=== PATIENT | male | born 1965 | race African-American/Black ===

== ENCOUNTER 2018-10-07 23:09 | Inpatient (IN) | payer SELFPAY ==
[~2018-10-07] VITALS: Ht 180.3 cm; Wt 57.7 kg
[2018-10-08] MEDS ORDERED: SODIUM CHLORIDE 0.9% 1,000 ML IVB ONE (01:14)
[2018-10-08] MEDS ORDERED: ONDANSETRON HCL 4 MG/2 ML VIAL IV ONE (01:30)
[2018-10-08] MEDS ORDERED: MORPHINE SULFATE 4 MG/ML SYR/VIAL IV ONE (01:30)
[2018-10-08 01:57] LABS: Basophils # (auto) 0 uL; Basophils % (auto) 0.9 % (0.0-2.0); Eosinophils # (auto) 0 uL; Eosinophils % (auto) 0.8 % (0.0-7.0); Hemoglobin 15.4 g/dL (13.5-17.5); Lymphocytes # (auto) 1.3 uL; Mean Corpuscular Volume 101.9 fL (80.0-100.0); Monocytes # (auto) 0.3 uL; Neutrophils # (auto) 2.8 uL
[2018-10-08 01:59] LABS: Hematocrit 44.9 % (41.0-53.0); Lymphocytes % (auto) 29.5 % (10.0-50.0); Mean Corpuscular Hemoglobin 34.9 pg (28.0-32.0); Mean Corpuscular Hgb Conc. 34.3 g/dL (32.0-36.0); Monocytes % (auto) 6.9 % (0.0-12.0); Neutrophils % (auto) 61.9 % (37.0-80.0); Nucleated Red Blood Cells % 0.2 %; Platelet Count (auto) 169 10^3/uL (140-450); Red Blood Cells 4.41 10^6/uL (4.5-5.90); Red Cell Distribution Width 14.2 % (11.8-14.3); White Blood Cell 4.4 10^3/uL (4.4-10.8)
[2018-10-08 02:12] LABS: INR 0.98 (0.9-1.15); Partial Thromboplastin Time 29.1 sec (23.64-32.05)
[2018-10-08 02:16] LABS: Alanine Aminotransferase 26 U/L (16-61); Albumin 3.8 g/dL (3.4-5.0); Anion Gap 11 (5-15); Aspartate Aminotransferase 27 U/L (15-37); BUN/Creatinine Ratio 14.5; Blood Urea Nitrogen 11 mg/dL (7-18); Calcium 8.8 mg/dL (8.5-10.1); Carbon Dioxide 22 mmol/L (21-32); Chloride 111 mmol/L (98-107); GFR African American 137 mL/min; GFR Non-African American 113 mL/min; Glucose 70 mg/dL (74-106); Magnesium 2.3 mg/dL (1.6-2.6); Potassium 3.9 mmol/L (3.5-5.1); Sodium 144 mmol/L (136-145)
[2018-10-08 02:21] LABS: Alkaline Phosphatase 78 U/L (45-117); Bilirubin, Total 0.8 mg/dL (0.2-1.0); Total Protein 7.7 g/dL (6.4-8.2)
[2018-10-08 08:30] LABS: Urine Bacteria NONE SEEN /hpf (None Seen); Urine Blood Negative /uL (Negative); Urine Mucus FEW (None Seen); Urine Specific Gravity 1.025 (1.001-1.035); Urine WBC 1 /hpf (0 - 3)
[2018-10-08 08:38] LABS: Amphetamine Screen, Urine NEGATIVE (NEGATIVE); Barbiturate Scree,Urine NEGATIVE (NEGATIVE); Benzodiazephine Screen, Urine NEGATIVE (NEGATIVE); Cannabinoid Screen, Urine NEGATIVE (NEGATIVE); Cocaine Screen, Urine NEGATIVE (NEGATIVE); Opiate Scree,Urine POSITIVE (NEGATIVE); Phencyclidine Screen, Urine NEGATIVE (NEGATIVE)
[2018-10-08] MEDS ORDERED: SODIUM CHLORIDE 0.9% 1,000 ML IV ONE (08:39)
[2018-10-08] MEDS ORDERED: ASPirin 81 mg TAB PO ONE (08:45)
[2018-10-08] MEDS ORDERED: HYDROcodone-ACET 5/325MG TAB PO PRN (12:15)
[2018-10-08] MEDS ORDERED: hydrALAZINE HCL 20 MG/ML VL IV PRN (12:15)
[2018-10-08] MEDS ORDERED: NITROGLYCERIN 0.4 MG SL TAB SL PRN (12:15)
[2018-10-08] MEDS ORDERED: MORPHINE SULF INJ 2 MG/ML SYRINGE 1ML IV PRN (12:15)
[2018-10-08] MEDS ORDERED: ACETAMINOPHEN 500 MG TAB PO PRN (12:15)
[2018-10-08] MEDS ORDERED: ONDANSETRON HCL 4 MG/2 ML VIAL IV PRN (12:15)
[2018-10-08 13:00] VITALS: BP 122/65
[2018-10-08 13:08] VITALS: BP 122/65
--- NOTE | 2018-10-08 13:12 | NUR ---
Telemetry admit from [facility] admitted to Telemetry unit after SBAR received. Patient oriented to CHRISTOFER CASTAÑEDA RN primary RN, unit, room, bed, and unit policies regarding patient care and visiting hours. Patient now on continuous telemetry monitoring, tele box #5 and telemetry reading on arrival to unit is SR95. Patient weighed by bedscale and encouraged to call if they need something. All questions and concerns addressed, patient verbalized understanding.
[2018-10-08] MEDS ORDERED: PNEUMOCOCCAL VACC POLYS 25 MCG/0.5 ML VIAL IM ONE (14:15)
[2018-10-08 17:00] VITALS: BP 123/64
--- NOTE | 2018-10-08 17:15 | NUR ---
Dr Arreola At Bedside Dr Arreola at patient bedside.
--- NOTE | 2018-10-08 18:50 | NUR ---
Closing Note Patient sitting up on side of bed, shows no signs of distress at this time. Bed in lowest locked position, side rails up x2 and call light within reach.
--- NOTE | 2018-10-08 19:00 | NUR ---
OPENING NOTE Received report from day shift RN. Patient is A&O X's 4 with no s/s of distress noted. He reports no pain at this time. Educated patient on POC and to use call light when in need of assistance. Patient verbalized understanding. Provided patient with non-skid socks. Bed is in lowest/locked position with side rails up X's 2 and call light is within reach of patient. Will continue care.
[2018-10-08 22:00] VITALS: BP 132/64
[2018-10-08] MEDS: DOCUSATE SOD 100 MG CAP PO SCH (22:04)
[2018-10-08] MEDS: METOPROLOL TARTRATE 25 MG TAB PO SCH (22:05)
[2018-10-08] MEDS: ATORVASTATIN 20 MG TAB PO SCH (22:05)
[2018-10-09 05:40] VITALS: BP 119/63
[2018-10-09 05:51] LABS: Eosinophils # (auto) 0 uL; Lymphocytes # (auto) 1.1 uL; Mean Corpuscular Hgb Conc. 34.1 g/dL (32.0-36.0); Neutrophils # (auto) 2.9 uL; Nucleated Red Blood Cells % 0.1 %
[2018-10-09 05:58] LABS: Basophils # (auto) 0.1 uL; Basophils % (auto) 1.4 % (0.0-2.0); Eosinophils % (auto) 1.1 % (0.0-7.0); Hematocrit 43.4 % (41.0-53.0); Hemoglobin 14.8 g/dL (13.5-17.5); Lymphocytes % (auto) 24.3 % (10.0-50.0); Mean Corpuscular Volume 102.6 fL (80.0-100.0); Monocytes # (auto) 0.3 uL; Monocytes % (auto) 7.5 % (0.0-12.0); Neutrophils % (auto) 65.7 % (37.0-80.0); Platelet Count (auto) 153 10^3/uL (140-450); Red Blood Cells 4.23 10^6/uL (4.5-5.90); Red Cell Distribution Width 13.8 % (11.8-14.3); White Blood Cell 4.5 10^3/uL (4.4-10.8)
[2018-10-09 06:15] LABS: BUN/Creatinine Ratio 17.4; Calcium 8.4 mg/dL (8.5-10.1); Potassium 4.1 mmol/L (3.5-5.1)
--- NOTE | 2018-10-09 07:15 | NUR ---
Open Shift Note Received report on patient, asleep in bed but easily awoken. Patient shows no signs of distress at this time and states no longer having chest pain. Discussed POC with patient. Bed in lowest locked position, side rails up x2 and call light within reach. Will continue to monitor.
[2018-10-09 09:10] VITALS: BP 113/64
[2018-10-09] MEDS: ASPirin-EC 81 mg tab PO SCH (09:55)
[2018-10-09] MEDS: FAMOTIDINE 20 MG TAB PO SCH (09:56)
[2018-10-09] MEDS: DOCUSATE SOD 100 MG CAP PO SCH ×2 (09:56→21:59)
[2018-10-09] MEDS: METOPROLOL TARTRATE 25 MG TAB PO SCH ×2 (09:56→21:59)
[2018-10-09] MEDS: LISINOPRIL 10 MG TAB PO SCH (10:00)
[2018-10-09 13:00] VITALS: BP 109/64
[2018-10-09] MEDS: MORPHINE SULF INJ 2 MG/ML SYRINGE 1ML IV PRN (14:06)
[2018-10-09 17:13] VITALS: BP 106/64
--- NOTE | 2018-10-09 18:53 | NUR ---
Closing Note Patient sitting up in bed, shows no signs of distress at this time. Bed in lowest locked position, side rails up x2 and call light within reach.
--- NOTE | 2018-10-09 19:00 | NUR ---
OPENING NOTE Received report from day shift RN. Patient laying in bed with eyes closed, resting. Patient shows no s/s of distress or discomfort. Bed is in lowest/locked position with side rails up X's 2 and call light is within reach of patient. Will educate patient on POC and continue care.
[2018-10-09] MEDS: ATORVASTATIN 20 MG TAB PO SCH (21:58)
[2018-10-09 22:05] VITALS: BP 114/61
[2018-10-10 06:10] VITALS: BP 117/64
--- NOTE | 2018-10-10 07:15 | NUR ---
Opening Shift Note Assumed care of patient, awake and alert. No S/S of distress/SOB or pain. Instructed on POC and to call for assist PRN, will continue to monitor for changes Q1hr and PRN.
[2018-10-10 07:53] VITALS: BP 104/67
[2018-10-10] MEDS: ASPirin-EC 81 mg tab PO SCH (09:24)
[2018-10-10] MEDS: FAMOTIDINE 20 MG TAB PO SCH (09:24)
[2018-10-10] MEDS: DOCUSATE SOD 100 MG CAP PO SCH ×2 (09:25→21:48)
[2018-10-10] MEDS: METOPROLOL TARTRATE 25 MG TAB PO SCH ×2 (09:25→21:48)
[2018-10-10] MEDS: LISINOPRIL 10 MG TAB PO SCH ×2 (09:26→17:53)
[2018-10-10 12:13] VITALS: BP 106/61
--- NOTE | 2018-10-10 14:47 | NUR ---
NUTRITION CONSULT/ASSESSMENT NOTES Please refer to link notes of nutrition screen form filed under the intervention section of the plan of care for further details. Est. Needs: 1850 kcal to 2150 kcal (30-35 kcal/kgBW), 61 gms to 74 gms pro (1.0-1.2 gms/kgBW). Will continue to monitor pertinent labs and reassess nutrient need prn Thank you for this consult. Addendum: 10/10/18 at [address] Amended: Links added.
[2018-10-10 17:13] VITALS: BP_SYST 104; BP_SYST 128; BP_DIAS 53; BP_DIAS 83
[2018-10-10] MEDS ORDERED: FUROSEMIDE 20 MG/2 ML VIAL IV ONE (17:15)
--- NOTE | 2018-10-10 18:52 | NUR ---
Patient C/O chest pain 4/10 sharp, non radiating pain. 12 lead EKG taken and read by MD Doctor Joyce. Per MD administer pain medications as ordered for chest pain no additional orders received.
[2018-10-10] MEDS ORDERED: MORPHINE SULF INJ 2 MG/ML SYRINGE 1ML ONE (18:57)
--- NOTE | 2018-10-10 19:28 | NUR ---
Change of shift given to film processing shift supervisor RN. No distress noted.
--- NOTE | 2018-10-10 19:45 | NUR ---
Opening Note Assumed pt care from day shift nurse. Pt is a/ox4 with no s/s of distress or SOB. Pt states that his CP has subsided. Instructed pt to call if he has any additional pain. Pt is currently laying in bed with no complaints. Discussed POC with pt; pt verbalized understanding. Safety measures maintained with side rails up, bed in lowest position and call light within reach. Will continue to monitor for changes q1hr and prn.
[2018-10-10] MEDS: ATORVASTATIN 20 MG TAB PO SCH (21:48)
[2018-10-10 21:49] VITALS: BP 100/51
[2018-10-11] MEDS ORDERED: FUROSEMIDE 20 MG/2 ML VIAL IV SCH (06:00)
[2018-10-11 09:00] VITALS: BP 89/54
--- NOTE | 2018-10-11 09:06 | NUR ---
Paged Doctor Santana awaiting call back.
[2018-10-11 09:08] VITALS: BP 84/43
--- NOTE | 2018-10-11 09:08 | NUR ---
Spoke with Doctor Elba regarding decrease blood pressure 84/43 and patient is asystematic. Doctor Elba stated to hold blood pressure medication and encourage PO fluid intake at this time. No additional orders given at this time will continue to monitor.
[2018-10-11] MEDS: ASPirin-EC 81 mg tab PO SCH (09:36)
[2018-10-11] MEDS: DOCUSATE SOD 100 MG CAP PO SCH ×2 (09:37→22:14)
[2018-10-11] MEDS: FAMOTIDINE 20 MG TAB PO SCH (09:37)
[2018-10-11] MEDS: METOPROLOL TARTRATE 25 MG TAB PO SCH ×2 (09:37→22:15)
[2018-10-11] MEDS: LISINOPRIL 10 MG TAB PO SCH (09:38)
[2018-10-11] MEDS ORDERED: SODIUM CHLORIDE 0.9% 250 ML IV ONE ×2 (12:30→14:30)
[2018-10-11 13:00] VITALS: BP 98/55
--- NOTE | 2018-10-11 13:06 | NUR ---
Received referral for a financial screening for Zia Yanes in room 247 B. Pt is from [place] and was visiting and became ill. Pt stated he is working but just started a new job. Pt states he has not been there long enough tot received benefits. Pt will be returning back to [place] on discharge from the hospital. Pt has had medi-caid in the past. referred to Financial Screening.
[2018-10-11 14:19] VITALS: BP 88/53
[2018-10-11 17:00] VITALS: BP 97/51
--- NOTE | 2018-10-11 19:47 | NUR ---
Opening Note Assumed pt care from day shift nurse. Pt is a/ox4 with no s/s of distress or SOB. Pt is currently laying in bed with no complaints. Discusses POC with pt and the KATHIA scheduled tomorrow morning. Assessed if pt had any questions regarding the procedure; answered all questions pt had. Discussed the need for the pt to maintain NPO status after 0000 and the need to sign consents; pt verbalized understanding. Safety measures maintained with call light within reach, bed in lowest position and side rails up. Will continue to monitor for changes q1hr and prn.
[2018-10-11 22:00] VITALS: BP 93/52
[2018-10-11] MEDS: ATORVASTATIN 20 MG TAB PO SCH (22:14)
--- NOTE | 2018-10-12 00:12 | NUR ---
EKG Placed in Pt's Chart for Pre-Procedure
[2018-10-12 05:45] LABS: Basophils # (auto) 0.1 uL; Basophils % (auto) 1.1 % (0.0-2.0); Eosinophils # (auto) 0.1 uL; Lymphocytes # (auto) 1.4 uL; Monocytes # (auto) 0.5 uL; Red Blood Cells 4.78 10^6/uL (4.5-5.90); Red Cell Distribution Width 13.8 % (11.8-14.3)
[2018-10-12 05:47] LABS: Eosinophils % (auto) 1.1 % (0.0-7.0); Hematocrit 48.7 % (41.0-53.0); Hemoglobin 16.6 g/dL (13.5-17.5); Lymphocytes % (auto) 28.3 % (10.0-50.0); Mean Corpuscular Hemoglobin 34.8 pg (28.0-32.0); Mean Corpuscular Hgb Conc. 34.1 g/dL (32.0-36.0); Monocytes % (auto) 9.4 % (0.0-12.0); Neutrophils % (auto) 60.1 % (37.0-80.0); Nucleated Red Blood Cells % 0.3 %; Platelet Count (auto) 175 10^3/uL (140-450); White Blood Cell 4.9 10^3/uL (4.4-10.8)
[2018-10-12 05:57] VITALS: BP 110/50
[2018-10-12 06:02] LABS: INR 1.03 (0.9-1.15); Partial Thromboplastin Time 29.9 sec (23.64-32.05)
[2018-10-12 06:09] LABS: Albumin 3.6 g/dL (3.4-5.0); Anion Gap 4 (5-15); Blood Urea Nitrogen 18 mg/dL (7-18); Calcium 9.2 mg/dL (8.5-10.1); Carbon Dioxide 29 mmol/L (21-32); Chloride 103 mmol/L (98-107); Glucose 87 mg/dL (74-106); Potassium 4.6 mmol/L (3.5-5.1); Sodium 136 mmol/L (136-145)
[2018-10-12 06:11] LABS: BUN/Creatinine Ratio 19.1; GFR African American 107 mL/min; GFR Non-African American 89 mL/min
[2018-10-12 06:21] LABS: Alanine Aminotransferase 23 U/L (16-61); Alkaline Phosphatase 74 U/L (45-117); Aspartate Aminotransferase 17 U/L (15-37); Bilirubin, Total 0.4 mg/dL (0.2-1.0); Total Protein 7.7 g/dL (6.4-8.2)
--- NOTE | 2018-10-12 07:25 | NUR ---
Open Shift Note Received report on patient, awake and standing up next to bed fixing sheets. Patient shows no signs of distress at this time. Discussed POC with patient and plans for KATHIA today, patient verbalized understanding. Bed in lowest locked position, side rails up x2 and call light within reach. Will continue to monitor.
[2018-10-12 08:56] VITALS: BP 102/60
[2018-10-12] MEDS: DOCUSATE SOD 100 MG CAP PO SCH ×2 (09:35→21:37)
[2018-10-12] MEDS: ASPirin-EC 81 mg tab PO SCH (09:35)
[2018-10-12] MEDS: METOPROLOL TARTRATE 25 MG TAB PO SCH ×2 (09:36→21:37)
[2018-10-12] MEDS: FUROSEMIDE 20 MG TAB PO SCH (09:36)
[2018-10-12] MEDS: LISINOPRIL 10 MG TAB PO SCH (09:36)
[2018-10-12] MEDS: FAMOTIDINE 20 MG TAB PO SCH (09:36)
[2018-10-12] MEDS ORDERED: FUROSEMIDE 20 MG/2 ML VIAL IV SCH (10:00)
[2018-10-12] MEDS ORDERED: MIDAZOLAM HCL 1MG/1ML-2 ML VIAL IV ONE (10:45)
[2018-10-12] MEDS ORDERED: LIDOCAINE VISCOUS 2% 15ML UD PO ONE (10:45)
[2018-10-12] MEDS ORDERED: fentaNYL CITRATE 100 MCG/2 ML VL IV ONE (10:45)
[2018-10-12] MEDS ORDERED: MIDAZOLAM HCL 1MG/1ML-2 ML VIAL ONE (11:03)
--- NOTE | 2018-10-12 13:00 | NUR ---
Unable to obtain 1300 vitals , pt is not in the room at this time .
[2018-10-12 13:52] VITALS: BP 108/60
[2018-10-12 15:05] LABS: Folate (Folic Acid) 14.83 ng/mL (5.38-24)
[2018-10-12 16:56] VITALS: BP 120/55
[2018-10-12] MEDS: MORPHINE SULF INJ 2 MG/ML SYRINGE 1ML IV PRN (19:53)
[2018-10-12 21:30] VITALS: BP 113/58
[2018-10-12] MEDS: ATORVASTATIN 20 MG TAB PO SCH (21:37)
[2018-10-13 06:05] VITALS: BP 104/60
[2018-10-13 09:00] VITALS: BP 114/58
[2018-10-13] MEDS: FAMOTIDINE 20 MG TAB PO SCH (09:11)
[2018-10-13] MEDS: DOCUSATE SOD 100 MG CAP PO SCH ×2 (09:11→21:09)
[2018-10-13] MEDS: ASPirin-EC 81 mg tab PO SCH (09:12)
[2018-10-13] MEDS: FUROSEMIDE 20 MG TAB PO SCH (09:12)
[2018-10-13] MEDS: LISINOPRIL 10 MG TAB PO SCH (09:12)
[2018-10-13] MEDS: METOPROLOL TARTRATE 25 MG TAB PO SCH ×2 (09:13→21:08)
[2018-10-13 13:00] VITALS: BP 88/55
--- NOTE | 2018-10-13 13:08 | NUR ---
assessment Patient is a 53 year old male who is alert and oriented. Prior to admission patient was here visiting family and started having chest pain and came to ER. Per patient he is going to stay here permanently and reside with his sister Olivia. Patient has no insurance. Patient has been assessed by Amarjit Riddle of [facility]. Patients application is secured. I have provided patient with resources for [facility], Dr. Mcgrath, and [facility] urgent care for follow up visits. I have provided patient with a prescription card from community assistance program. I informed patient he has a right to privacy. Patient does not have a POA and advanced directive. I have offered patient information on POA and advanced directives. I informed the patient the advantages and benefits of having an Advanced Directive. Patient verbalized understanding and agreed to discharge plan home. Addendum: 10/14/18 at 1312 by Amy QUINTEROS Amended: Links added.
--- NOTE | 2018-10-13 14:10 | NUR ---
Nutrition Follow-up Notes Wt.: 60.5 kg as of yesterday. Pt's busy talking over his phone when rounded twice this morning. Pt's s/p KATHIA yesterday, no signs of distress noted earlier, resumed on Cardiac: 2 gms Na, Low Chol, Low Fat diet no record of food intake yet at this time. Est. Needs: 1850 kcal to 2150 kcal (30-35 kcal/kgBW), 61 gms to 74 gms pro (1.0-1.2 gms/kgBW). Will continue to monitor pertinent labs and reassess nutrient need prn Labs: Pertinent labs wnl except for Anion Gap 4 L, Vit B12 1160 H Skin: Nitesh scale 23, low risk, skin intact per medication aide. GI: Pt had 1 BM this morning per medication aide. PES: Increased nutrient needs r/t current/chronic medical/nutritional status aeb 77% IBW, BMI 18.6 kg/m2, decreased muscle mass. Altered nutrition related lab values r/t current/chronic medical condition aeb low Cr, elev. C React Prot, hypocalcemia Will continue to monitor PO intake, skin status, pertinent labs and weight trend. F/u in 3 to 5 days. Rec.: 1.) Consider Ensure Enlive 1 carton TID. 2.) Continue close supervision during meals. 3.) Refer pt to RD for further nutrition education and weight monitoring upon discharge. 4.) Continue current plan of care.
[2018-10-13 17:04] VITALS: BP 113/59
--- NOTE | 2018-10-13 17:59 | NUR ---
pt out many times throughout shift to go smoke downstairs ama to smoke form in chart signed
--- NOTE | 2018-10-13 19:30 | NUR ---
Opening Shift Note Assumed care of patient, awake and alert, ambulatory. No S/S of distress/SOB or pain. Sister at bedside. Updated on POC and to call for assist PRN, patient and sister verbalized understanding, will continue to monitor for changes Q1hr and PRN.
[2018-10-13] MEDS: ATORVASTATIN 20 MG TAB PO SCH (21:06)
[2018-10-13 22:00] VITALS: BP 101/63
[2018-10-14 05:00] VITALS: BP 117/86
--- NOTE | 2018-10-14 08:00 | NUR ---
Patient walking in the room. Steady gait noted, no acute distress noted.
[2018-10-14 08:58] VITALS: BP 93/60
[2018-10-14] MEDS: LISINOPRIL 10 MG TAB PO SCH (10:00)
[2018-10-14] MEDS: DOCUSATE SOD 100 MG CAP PO SCH (10:53)
[2018-10-14] MEDS: ASPirin-EC 81 mg tab PO SCH (10:53)
[2018-10-14] MEDS: FAMOTIDINE 20 MG TAB PO SCH (10:53)
[2018-10-14] MEDS: METOPROLOL TARTRATE 25 MG TAB PO SCH (10:54)
[2018-10-14] MEDS: FUROSEMIDE 20 MG TAB PO SCH (10:54)
--- NOTE | 2018-10-14 11:00 | NUR ---
Received a call from Dr. Barton. will call the Machine Clipper. Amarjit has talked to the patient regarding insurance.
--- NOTE | 2018-10-14 11:30 | NUR ---
Dr. Barton to put in discharge orders.
[2018-10-14 11:48] VITALS: BP 93/60
--- NOTE | 2018-10-14 11:55 | NUR ---
Pneumo vaccine not available.
[2018-10-14 12:57] VITALS: BP 115/56
--- NOTE | 2018-10-14 14:15 | NUR ---
Patient's sister called, very angry, insisting why the patient is not transferred to [facility]. Explained to sister patient has no orders for transfer to [facility], patient can follow up with [facility] or [facility] as outpatient, it will take weeks before the patient's insurance is approved upon application as per Amarjit who already spoke with the patient about it. Patient is oriented x4, able to decide for himself, ambulatory, with signed AMA to smoke off unit/downstairs.
--- NOTE | 2018-10-14 14:35 | NUR ---
Supervisor Shipfitters Amy Moulton spoke with patient.
--- NOTE | 2018-10-14 14:40 | NUR ---
Taxi voucher offered to patient. Patient called his mother if his sister will pick him up.
--- NOTE | 2018-10-14 14:50 | NUR ---
Discharge instructions given as ordered. Encourage to follow up with PMD as instructed. All questions and concerns addressed. Patient verbalized understanding. Medication reconciliation form completed and copy given to patient. IV removed with catheter intact, pressure dressing applied. Telemetry unit returned to ICU. Patient taken to vehicle via wheelchair with all personal belongings, accompanied by staff. No distress noted, no complaints of pain at time of departure.
--- NOTE | 2018-10-14 14:50 | NUR ---
Patient stated his family is picking him up, refused the taxi voucher. PAULA Youngblood transferred the patient via wheelchair to the Main Lobby.
== END 2018-10-14 14:50 | disposition home or self-care (01) | DRG 307 ==
LOC: EDBD 23:09 → ER 23:19 → TELE 23:20 → TELE-EAST 10-08 13:10
PROVIDERS: ADMIT Nurse Practitioner Acute Care; ATTEND Internal Medicine Pulmonary Disease
PROC: B246ZZ4 Ultrasonography of Right and Left Heart, Transesophageal (ICD-10-PCS; principal; 2018-10-12)
DX: I05.9 Rheumatic mitral valve disease, unspecified (principal); D75.89 Other specified diseases of blood and blood-forming organs; F17.210 Nicotine dependence, cigarettes, uncomplicated; I20.9 Angina pectoris, unspecified; I95.9 Hypotension, unspecified; Z79.899 Other long term (current) drug therapy; Z28.21 Immunization not carried out because of patient refusal
CPT/HCPCS: 36415; 71045; 80048; 80053; 80307; 81001; 82607; 82746; 83735; 83880; 84443; 84484; 85025; 85379; 85610; 85730; 86141; 86850; 86900; 86901; 87040; 93005; 93306; 93312; 96361; 96374; 96375; G0378; J2250; J2405

== ENCOUNTER 2018-11-17 15:41 | Inpatient (IN) | payer MEDICAID ==
[~2018-11-17] VITALS: Ht 180.3 cm; Wt 59.9 kg
[2018-11-17 16:38] LABS: Eosinophils # (auto) 0 uL; Hemoglobin 13.6 g/dL (13.5-17.5); Lymphocytes # (auto) 1.3 uL; Lymphocytes % (auto) 27.5 % (10.0-50.0); Monocytes # (auto) 0.4 uL
[2018-11-17 16:40] LABS: Basophils # (auto) 0 uL; Basophils % (auto) 0.9 % (0.0-2.0); Eosinophils % (auto) 0.4 % (0.0-7.0); Hematocrit 40.5 % (41.0-53.0); Mean Corpuscular Hemoglobin 34.6 pg (28.0-32.0); Mean Corpuscular Hgb Conc. 33.7 g/dL (32.0-36.0); Mean Corpuscular Volume 102.9 fL (80.0-100.0); Monocytes % (auto) 8.6 % (0.0-12.0); Neutrophils % (auto) 62.6 % (37.0-80.0); Platelet Count (auto) 155 10^3/uL (140-450); Red Blood Cells 3.93 10^6/uL (4.5-5.90); Red Cell Distribution Width 13.8 % (11.8-14.3); White Blood Cell 4.8 10^3/uL (4.4-10.8)
[2018-11-17 16:57] LABS: Albumin 3.5 g/dL (3.4-5.0); Anion Gap 7 (5-15); Blood Urea Nitrogen 11 mg/dL (7-18); Calcium 8.6 mg/dL (8.5-10.1); Carbon Dioxide 26 mmol/L (21-32); Chloride 108 mmol/L (98-107); Glucose 82 mg/dL (74-106); Potassium 4.1 mmol/L (3.5-5.1); Sodium 141 mmol/L (136-145)
[2018-11-17] MEDS ORDERED: MORPHINE SULFATE 4 MG/ML SYR/VIAL IV ONE (17:00)
[2018-11-17] MEDS ORDERED: ONDANSETRON HCL 4 MG/2 ML VIAL IV ONE (17:00)
[2018-11-17] MEDS ORDERED: ASPirin 81 mg TAB PO ONE (17:00)
[2018-11-17 17:02] LABS: Alanine Aminotransferase 26 U/L (16-61); Alkaline Phosphatase 67 U/L (45-117); Aspartate Aminotransferase 19 U/L (15-37); BUN/Creatinine Ratio 12.9; Bilirubin, Total 0.6 mg/dL (0.2-1.0); GFR African American 120 mL/min; GFR Non-African American 99 mL/min; Total Protein 7.3 g/dL (6.4-8.2)
[2018-11-17] MEDS ORDERED: NITROGLYCERIN 0.4 MG SL TAB SL PRN (21:15)
[2018-11-17] MEDS ORDERED: ONDANSETRON HCL 4 MG/2 ML VIAL IV PRN (21:15)
[2018-11-17] MEDS ORDERED: MORPHINE SULF INJ 2 MG/ML SYRINGE 1ML IV PRN (21:15)
[2018-11-17] MEDS ORDERED: TEMAZEPAM 15 MG CAP PO PRN (21:15)
[2018-11-17] MEDS ORDERED: ACETAMINOPHEN 325 MG TAB PO PRN (21:15)
--- NOTE | 2018-11-17 21:45 | NUR ---
PATIENT ARRIVED TO UNIT FROM THE EMERGENCY DEPARTMENT VIA WHEELCHAIR. HE IS AMBULATORY, ON ROOM AIR AND NO CURRENT COMPLAINTS OF PAIN BUT DID EXPLAIN HE HAD SOME CHEST PAIN IN THE ER UNTIL THEY GAVE HIM MORPHINE. LUNGS SOUNDS ARE CLEAR. BED IS LOCKED IN LOWEST POSITION AND SIDE RAILS UP X2. CALL LIGHT IS WITHIN REACH. WILL CONTINUE TO MONITOR.
[2018-11-17] MEDS: METOPROLOL TARTRATE 25 MG TAB PO SCH (22:00)
[2018-11-17] MEDS ORDERED: ATORVASTATIN 20 MG TAB PO SCH (22:00)
[2018-11-17 22:15] LABS: Anion Gap 9 (5-15); BUN/Creatinine Ratio 15.1; Blood Urea Nitrogen 11 mg/dL (7-18); Calcium 8.8 mg/dL (8.5-10.1); Carbon Dioxide 24 mmol/L (21-32); Chloride 109 mmol/L (98-107); GFR African American 143 mL/min; GFR Non-African American 119 mL/min; Glucose 88 mg/dL (74-106); Potassium 3.9 mmol/L (3.5-5.1); Sodium 142 mmol/L (136-145)
[2018-11-17] MEDS: FAMOTIDINE 20 MG TAB PO SCH (22:28)
[2018-11-17 22:45] VITALS: BP 125/71
[2018-11-18 00:22] VITALS: BP 125/71
[2018-11-18] MEDS ORDERED: INFLUENZA QUAD 2019-2020 0.5ml SYRG IM ONE (01:00)
[2018-11-18] MEDS ORDERED: PNEUMOCOCCAL VACC POLYS 25 MCG/0.5 ML VIAL IM ONE (01:00)
[2018-11-18] MEDS ORDERED: ASPI-231 PO (01:01)
[2018-11-18] MEDS ORDERED: FURO20TA3 PO (01:01)
[2018-11-18] MEDS ORDERED: LISI-275 PO (01:01)
[2018-11-18] MEDS ORDERED: POTA10TA51 PO (01:01)
[2018-11-18] MEDS ORDERED: METO25TA5 PO (01:01)
[2018-11-18] MEDS ORDERED: ATOR10TA PO (01:01)
[2018-11-18 05:00] VITALS: BP 121/68
--- NOTE | 2018-11-18 07:45 | NUR ---
Opening Shift Note Assumed care of patient, awake, alert and oriented. No S/S of distress/SOB or pain. Bed in low/locked position, bed rails up x2. Instructed on POC and to call for assist PRN with call light within reach. Will continue to monitor for changes Q1hr and PRN.
[2018-11-18 09:23] VITALS: BP 110/60
[2018-11-18] MEDS: METOPROLOL TARTRATE 25 MG TAB PO SCH (09:53)
[2018-11-18] MEDS: FAMOTIDINE 20 MG TAB PO SCH (09:53)
[2018-11-18] MEDS ORDERED: ASPirin 81 mg TAB PO SCH (10:00)
[2018-11-18] MEDS ORDERED: LISINOPRIL 5 MG TAB PO SCH (10:00)
[2018-11-18] MEDS ORDERED: FUROSEMIDE 20 MG TAB PO SCH (10:00)
[2018-11-18 13:00] VITALS: BP 113/66
--- NOTE | 2018-11-18 14:33 | NUR ---
Social Service consult regarding Advance Directive. Provided Pt with information on JERAMIE copy of form. Pt was receptive.
[2018-11-18 15:31] VITALS: BP 110/60
--- NOTE | 2018-11-18 17:30 | NUR ---
Discharge instructions given as ordered. Encourage to follow up with PMD as instructed. All questions and concerns addressed. Patient verbalized understanding. IV removed with catheter intact, pressure dressing applied. Telemetry unit returned to ICU. Patient taken to vehicle via wheelchair with all personal belongings, accompanied by staff and family member. No distress noted at time of departure.
== END 2018-11-18 18:03 | disposition home or self-care (01) | DRG 200 ==
LOC: ER 15:45 → TELE 15:46 → TELE-WESTW 23:43
PROVIDERS: ADMIT Nurse Practitioner; ATTEND Internal Medicine
DX: I05.2 Rheumatic mitral stenosis with insufficiency (principal); F17.210 Nicotine dependence, cigarettes, uncomplicated; Z28.21 Immunization not carried out because of patient refusal
CPT/HCPCS: 36415; 71046; 80048; 80053; 83735; 84484; 85025; 87081; 94761; 96374; 96375; G0378; J2405

== ENCOUNTER 2019-01-13 00:46 | Emergency (ER) | payer MEDICAID ==
[~2019-01-13] VITALS: Ht 182.9 cm; Wt 77.1 kg
[~2019-01-13 00:46] MED LIST: ASPI-231 PO; ATOR10TA PO; FURO20TA3 PO; LISI-275 PO; METO25TA5 PO; POTA10TA51 PO
[2019-01-13] MEDS ORDERED: SODIUM CHLORIDE 0.9% 1,000 ML IV ONE (01:45)
[2019-01-13] MEDS ORDERED: ONDANSETRON HCL 4 MG/2 ML VIAL IV ONE (01:45)
[2019-01-13] MEDS ORDERED: FAMOTIDINE (10MG/ML) 2ML VL IV ONE (01:45)
[2019-01-13 01:47] LABS: Basophils # (auto) 0.1 uL; Basophils % (auto) 0.7 % (0.0-2.0); Eosinophils # (auto) 0 uL; Hematocrit 41.2 % (41.0-53.0); Lymphocytes # (auto) 0.7 uL; Lymphocytes % (auto) 6.4 % (10.0-50.0); Mean Corpuscular Hemoglobin 33.5 pg (28.0-32.0); Mean Corpuscular Hgb Conc. 34.1 g/dL (32.0-36.0); Mean Corpuscular Volume 98.2 fL (80.0-100.0); Monocytes # (auto) 0.1 uL; Monocytes % (auto) 1.3 % (0.0-12.0); Neutrophils # (auto) 9.7 uL; Neutrophils % (auto) 91.6 % (37.0-80.0); Platelet Count (auto) 185 10^3/uL (140-450); Red Cell Distribution Width 13.9 % (11.8-14.3); White Blood Cell 10.6 10^3/uL (4.4-10.8)
[2019-01-13 02:06] LABS: Amylase 81 U/L (25-115); Lipase 74 U/L (73-393)
[2019-01-13 02:10] LABS: Alanine Aminotransferase 27 U/L (16-61); Albumin 3.8 g/dL (3.4-5.0); Anion Gap 11 (5-15); Aspartate Aminotransferase 23 U/L (15-37); BUN/Creatinine Ratio 12.5; Blood Urea Nitrogen 13 mg/dL (7-18); Carbon Dioxide 22 mmol/L (21-32); Chloride 105 mmol/L (98-107); GFR African American 95 mL/min; GFR Non-African American 79 mL/min; Glucose 176 mg/dL (74-106); Potassium 4.3 mmol/L (3.5-5.1); Sodium 138 mmol/L (136-145)
[2019-01-13 02:14] LABS: Alkaline Phosphatase 71 U/L (45-117); Bilirubin, Total 0.6 mg/dL (0.2-1.0)
[2019-01-13] MEDS ORDERED: MORPHINE SULF INJ 2 MG/ML SYRINGE 1ML IV ONE (02:45)
[2019-01-13] MEDS ORDERED: IOHEXOL 300 MG/ML 100ML BOTTLE IJ ONE (03:36)
[2019-01-13 05:46] VITALS: BP 96/60
== END 2019-01-13 06:20 | disposition home or self-care (01) ==
LOC: EDUNIT# 00:46 → EDBD 00:46 → ER 00:47
DX: K29.00 Acute gastritis without bleeding (principal); F17.210 Nicotine dependence, cigarettes, uncomplicated; E78.5 Hyperlipidemia, unspecified; I10 Essential (primary) hypertension; Z79.899 Other long term (current) drug therapy
CPT/HCPCS: 36415; 74176; 74177; 80053; 82150; 83690; 84484; 85025; 93005; 96361; 96374; 96375; 99284; J2270; J2405; J3490; J7030; Q9967

== ENCOUNTER 2020-01-22 14:07 | Inpatient (IN) | payer MEDICAID ==
[~2020-01-22] VITALS: Ht 180.3 cm; Wt 60.9 kg
[2020-01-22 15:36] LABS: INR 1.13 (0.9-1.15); Partial Thromboplastin Time 22.4 sec (23.0-31.2)
[2020-01-22 15:39] LABS: Albumin 4.2 g/dL (3.4-5.0); Calcium 9.4 mg/dL (8.5-10.1); Potassium 4.3 mmol/L (3.5-5.1)
[2020-01-22 16:08] LABS: BUN/Creatinine Ratio 20.7; Basophils # (auto) 0.1 10 ^3/uL (0-0.2); Bilirubin, Total 0.8 mg/dL (0.2-1.0); Eosinophils # (auto) 0 10 ^3/uL (0-0.8); Eosinophils % (auto) 0.1 % (0.0-7.0); Lymphocytes # (auto) 1.3 10 ^3/uL (0.4-5.4); Monocytes # (auto) 0.5 10 ^3/uL (0-1.3); Neutrophils # (auto) 10.2 10 ^3/uL (1.6-8.6); Nucleated Red Blood Cells % 0.3 %; Total Protein 9.3 g/dL (6.4-8.2)
[2020-01-22 16:11] LABS: Basophils % (auto) 0.9 % (0.0-2.0); Hematocrit 23.8 % (41.0-53.0); Lymphocytes % (auto) 10.8 % (10.0-50.0); Mean Corpuscular Hemoglobin 16.5 pg (28.0-32.0); Mean Corpuscular Hgb Conc. 27.6 g/dL (32.0-36.0); Mean Corpuscular Volume 59.7 fL (80.0-100.0); Monocytes % (auto) 3.8 % (0.0-12.0); Neutrophils % (auto) 84.4 % (37.0-80.0); Platelet Count (auto) 435 10^3/uL (140-450); Red Blood Cells 3.99 10^6/uL (4.5-5.90)
[2020-01-22] MEDS ORDERED: NITROGLYCERIN 0.4 MG SL TAB SL PRN (16:15)
[2020-01-22] MEDS ORDERED: ACETAMINOPHEN 500 MG TAB PO PRN (16:15)
[2020-01-22] MEDS ORDERED: ONDANSETRON HCL 4 MG/2 ML VIAL IV PRN (16:15)
[2020-01-22] MEDS ORDERED: MORPHINE SULF INJ 2 MG/ML SYRINGE 1ML IV PRN ×2 (16:15)
[2020-01-22] MEDS ORDERED: REMDESIVIR PER PHARMACY 0 ML IV SCH (16:15)
[2020-01-22 16:17] LABS: Hemoglobin 6.6 g/dL (13.5-17.5)
[2020-01-22] MEDS ORDERED: RIVA20TA PO (16:51)
[2020-01-22] MEDS ORDERED: PANT40TA2 PO (16:51)
[2020-01-22] MEDS ORDERED: REMDESIVIR 200 MG in NS 210ml LOADING DOSE ADULT IV ONE (17:00)
[2020-01-22] MEDS ORDERED: RIVAROXABAN 10 MG TAB PO SCH (18:00)
[2020-01-22 20:17] LABS: Basophils # (auto) 0 10 ^3/uL (0-0.2); Eosinophils # (auto) 0 10 ^3/uL (0-0.8); Lymphocytes # (auto) 0.6 10 ^3/uL (0.4-5.4); Lymphocytes % (auto) 6.4 % (10.0-50.0); Monocytes # (auto) 0.8 10 ^3/uL (0-1.3)
[2020-01-22 20:19] LABS: Basophils % (auto) 0.2 % (0.0-2.0); Hematocrit 21.6 % (41.0-53.0); Mean Corpuscular Hemoglobin 16.9 pg (28.0-32.0); Mean Corpuscular Hgb Conc. 28.1 g/dL (32.0-36.0); Mean Corpuscular Volume 60.3 fL (80.0-100.0); Monocytes % (auto) 8.6 % (0.0-12.0); Neutrophils # (auto) 8.4 10 ^3/uL (1.6-8.6); Neutrophils % (auto) 84.8 % (37.0-80.0); Nucleated Red Blood Cells % 0.4 %; Platelet Count (auto) 338 10^3/uL (140-450); Red Blood Cells 3.59 10^6/uL (4.5-5.90); White Blood Cell 9.9 10^3/uL (4.4-10.8)
[2020-01-22 20:23] LABS: Red Cell Distribution Width 21.1 % (11.8-14.3)
[2020-01-22 20:25] LABS: Hemoglobin 6.1 g/dL (13.5-17.5)
[2020-01-22 20:32] LABS: Albumin 3.8 g/dL (3.4-5.0); Calcium 9.3 mg/dL (8.5-10.1); Magnesium 2.9 mg/dL (1.6-2.6); Potassium 4.9 mmol/L (3.5-5.1)
[2020-01-22 20:40] LABS: BUN/Creatinine Ratio 25.6; Bilirubin, Total 0.8 mg/dL (0.2-1.0); CRP High Sensitivity 7.36 mg/dL (< 0.3); Total Protein 8.5 g/dL (6.4-8.2)
[2020-01-22] MEDS: BUDESONIDE (INHALATION) 0.5 MG/2 ML NEB NEB SCH (21:07)
[2020-01-23 00:33] VITALS: BP 105/66
[2020-01-23 00:48] VITALS: BP 104/63
[2020-01-23 03:30] VITALS: BP 113/65
[2020-01-23 05:18] LABS: Eosinophils # (auto) 0 10 ^3/uL (0-0.8); Hemoglobin 7.9 g/dL (13.5-17.5); Monocytes # (auto) 0.8 10 ^3/uL (0-1.3)
[2020-01-23 05:20] LABS: Basophils # (auto) 0.2 10 ^3/uL (0-0.2); Basophils % (auto) 1.7 % (0.0-2.0); Hematocrit 26.6 % (41.0-53.0); Lymphocytes # (auto) 0.9 10 ^3/uL (0.4-5.4); Lymphocytes % (auto) 8.1 % (10.0-50.0); Mean Corpuscular Hemoglobin 19.4 pg (28.0-32.0); Mean Corpuscular Hgb Conc. 29.6 g/dL (32.0-36.0); Mean Corpuscular Volume 65.5 fL (80.0-100.0); Monocytes % (auto) 7.5 % (0.0-12.0); Neutrophils # (auto) 8.8 10 ^3/uL (1.6-8.6); Neutrophils % (auto) 82.7 % (37.0-80.0); Nucleated Red Blood Cells % 0.2 %; Platelet Count (auto) 353 10^3/uL (140-450); Red Blood Cells 4.07 10^6/uL (4.5-5.90); White Blood Cell 10.6 10^3/uL (4.4-10.8)
[2020-01-23 05:31] LABS: Potassium 4.7 mmol/L (3.5-5.1)
[2020-01-23 05:36] LABS: Red Cell Distribution Width 26.9 % (11.8-14.3)
[2020-01-23 05:40] LABS: Albumin 3.6 g/dL (3.4-5.0); BUN/Creatinine Ratio 26.1; Calcium 9.4 mg/dL (8.5-10.1); Total Protein 8.6 g/dL (6.4-8.2)
[2020-01-23 06:05] LABS: INR 1.14 (0.9-1.15); Partial Thromboplastin Time 25.6 sec (23.0-31.2)
--- NOTE | 2020-01-23 06:20 | NUR ---
Respiratory note: PT SEEN AT THIS TIME. NO DISTRESS NOTED. UNABLE TO GIVE MED NEB AT THIS TIME. HR 88, RR 18, SPO2 100 ON NRB.
[2020-01-23 08:55] LABS: Urine Bacteria NONE SEEN /hpf (None Seen); Urine Blood TRACE /uL (Negative); Urine Specific Gravity 1.018 (1.001-1.035); Urine WBC 2 /hpf (0 - 3)
[2020-01-23] MEDS ORDERED: FAMOTIDINE 20 MG TAB PO SCH (10:00)
[2020-01-23] MEDS: BUDESONIDE (INHALATION) 0.5 MG/2 ML NEB NEB SCH ×2 (10:00→21:23)
[2020-01-23] MEDS: cefTRIAXone 1GM/50ML D5W 50 ML IV SCH (10:09)
[2020-01-23] MEDS: DexAMETHasone SOD PHOS 10MG/1ML VIAL INJ IV SCH (10:18)
[2020-01-23] MEDS: AZITHROMYCIN 500MG/ 250ML 250 ML IV SCH (10:27)
[2020-01-23] MEDS: ZINC SULFATE 220mg CAP or TAB PO SCH (10:28)
[2020-01-23] MEDS: ASCORBIC ACID 1,000 MG TAB PO SCH (10:29)
[2020-01-23] MEDS: CHOLECALCIFEROL (VITD3) 2,000 UNIT CAP PO SCH (10:30)
[2020-01-23] MEDS ORDERED: REMDESIVIR 100 MG in SODIUM CHL 0.9% 250 ML IV SCH (15:00)
[2020-01-23] MEDS ORDERED: PANTOPRAZOLE 40 MG/10 ML VIAL INJ IV ONE (15:45)
[2020-01-23] MEDS ORDERED: SODIUM FERR GLUC 62.5MG/5ML 125 MG in SODIUM CHL 0.9% 100 ML IV ONE (16:00)
[2020-01-23] MEDS: HYDROcodone-ACET 5/325MG TAB PO PRN (18:24)
[2020-01-24] MEDS ORDERED: BUDESONIDE (INHALATION) 180 MCG IH IN PRN (04:00)
[2020-01-24 07:38] LABS: Basophils # (auto) 0 10 ^3/uL (0-0.2); Eosinophils # (auto) 0 10 ^3/uL (0-0.8); Lymphocytes # (auto) 0.6 10 ^3/uL (0.4-5.4); Monocytes # (auto) 0.6 10 ^3/uL (0-1.3); Nucleated Red Blood Cells % 0.2 %
[2020-01-24 07:44] LABS: Basophils % (auto) 0.2 % (0.0-2.0); Hematocrit 26.4 % (41.0-53.0); Hemoglobin 7.6 g/dL (13.5-17.5); Lymphocytes % (auto) 5.6 % (10.0-50.0); Mean Corpuscular Hemoglobin 18.7 pg (28.0-32.0); Mean Corpuscular Volume 64.6 fL (80.0-100.0); Monocytes % (auto) 4.9 % (0.0-12.0); Neutrophils # (auto) 10.2 10 ^3/uL (1.6-8.6); Neutrophils % (auto) 89.3 % (37.0-80.0); Platelet Count (auto) 309 10^3/uL (140-450); Red Blood Cells 4.08 10^6/uL (4.5-5.90); White Blood Cell 11.4 10^3/uL (4.4-10.8)
[2020-01-24 08:08] LABS: Calcium 9.2 mg/dL (8.5-10.1); Potassium 4.7 mmol/L (3.5-5.1)
[2020-01-24 08:09] LABS: BUN/Creatinine Ratio 26.7
[2020-01-24 08:30] LABS: Red Cell Distribution Width 26.2 % (11.8-14.3)
[2020-01-24] MEDS: DexAMETHasone SOD PHOS 10MG/1ML VIAL INJ IV SCH (08:30)
[2020-01-24] MEDS: ASCORBIC ACID 1,000 MG TAB PO SCH (08:30)
[2020-01-24] MEDS: PANTOPRAZOLE 40 MG/10 ML VIAL INJ IV SCH (08:30)
[2020-01-24] MEDS: cefTRIAXone 1GM/50ML D5W 50 ML IV SCH (08:30)
[2020-01-24] MEDS: ZINC SULFATE 220mg CAP or TAB PO SCH (08:30)
[2020-01-24] MEDS: AZITHROMYCIN 500MG/ 250ML 250 ML IV SCH (08:30)
[2020-01-24] MEDS: CHOLECALCIFEROL (VITD3) 2,000 UNIT CAP PO SCH (08:31)
--- NOTE | 2020-01-24 08:49 | NUR ---
Respiratory note: PT ASSESSED, NOTED TO BE IN NO DISTRESS. HR 82 RR 18 SPO2 100% ON 3L N/C. RN SUHAIL AT BEDSIDE AND AWARE TO HAVE RT PAGED IF NEEDED. RT TO ORDERED MDI'S FROM PHARMACY PT HAS NONE AT BEDSIDE.
[2020-01-24] MEDS: PATIENTS OWN MEDICATION (PULMICORT 360 MCG) INH SCH ×2 (10:00→21:03)
[2020-01-24] MEDS: HYDROcodone-ACET 5/325MG TAB PO PRN ×2 (10:32→23:04)
--- NOTE | 2020-01-24 12:00 | NUR ---
Respiratory note: CALLED PHARMACY AND ORDERED. MDI INHALERS.
[2020-01-24] MEDS: SODIUM FERR GLUC 62.5MG/5ML 125 MG in SODIUM CHL 0.9% 100 ML IV SCH (12:34)
[2020-01-24 18:24] VITALS: BP 99/60
[2020-01-24 18:39] VITALS: BP 98/58
[2020-01-24 21:33] LABS: % Iron Saturation 35.2 % (20-55)
[2020-01-24 22:00] VITALS: BP 120/68
--- NOTE | 2020-01-24 22:00 | NUR ---
Respiratory note: ASSESSMENT FOR PRN MDI TX, PT IN NO RESPIRATORY DISTRESS. MDI TX NOT INDICATED AT THIS TIME. WILL CONTINUE TO MONITOR.
[2020-01-25] MEDS ORDERED: dilTIAZem 25 MG/5 ML VIAL IV ONE ×2 (01:22→01:30)
[2020-01-25 05:46] LABS: Basophils # (auto) 0 10 ^3/uL (0-0.2); Eosinophils # (auto) 0 10 ^3/uL (0-0.8); Hemoglobin 9.2 g/dL (13.5-17.5); Monocytes # (auto) 0.7 10 ^3/uL (0-1.3); Monocytes % (auto) 4.1 % (0.0-12.0); Nucleated Red Blood Cells % 0.2 %
[2020-01-25 05:49] LABS: Basophils % (auto) 0.2 % (0.0-2.0); Hematocrit 30.6 % (41.0-53.0); Lymphocytes # (auto) 0.8 10 ^3/uL (0.4-5.4); Lymphocytes % (auto) 4.7 % (10.0-50.0); Mean Corpuscular Hemoglobin 20.3 pg (28.0-32.0); Mean Corpuscular Volume 67.7 fL (80.0-100.0); Neutrophils # (auto) 14.8 10 ^3/uL (1.6-8.6); Platelet Count (auto) 299 10^3/uL (140-450); Red Blood Cells 4.52 10^6/uL (4.5-5.90); White Blood Cell 16.3 10^3/uL (4.4-10.8)
[2020-01-25 05:51] LABS: BUN/Creatinine Ratio 21.8; Calcium 9.5 mg/dL (8.5-10.1); Potassium 4.2 mmol/L (3.5-5.1)
[2020-01-25] MEDS: ASCORBIC ACID 1,000 MG TAB PO SCH (08:02)
[2020-01-25] MEDS: DexAMETHasone SOD PHOS 4 MG/1ML SDV INJ IV SCH (08:02)
[2020-01-25] MEDS: cefTRIAXone 1GM/50ML D5W 50 ML IV SCH (08:02)
[2020-01-25] MEDS: PANTOPRAZOLE 40 MG/10 ML VIAL INJ IV SCH (08:02)
[2020-01-25] MEDS: ZINC SULFATE 220mg CAP or TAB PO SCH (08:02)
[2020-01-25] MEDS: AZITHROMYCIN 500MG/ 250ML 250 ML IV SCH (08:02)
[2020-01-25] MEDS: CHOLECALCIFEROL (VITD3) 2,000 UNIT CAP PO SCH (08:02)
[2020-01-25] MEDS: PATIENTS OWN MEDICATION (PULMICORT 360 MCG) INH SCH (10:00)
[2020-01-25] MEDS: SODIUM FERR GLUC 62.5MG/5ML 125 MG in SODIUM CHL 0.9% 100 ML IV SCH (12:38)
--- NOTE | 2020-01-25 16:00 | NUR ---
Telemetry admit from [facility] admitted to Telemetry unit after SBAR received. Patient oriented to Kathi Ayon, primary RN, unit, room, bed, and unit policies regarding patient care and visiting hours. Patient now on continuous telemetry monitoring, tele box # 87 and telemetry reading on arrival to unit is A. Fib at 116. Patient placed on bedside oxygen, weighed by bedscale and encouraged to call if they need something. All questions and concerns addressed, patient verbalized understanding.
[2020-01-25 17:35] VITALS: BP 111/71
[2020-01-25] MEDS: ALBUTEROL SULF HFA 90MCG INH 200DOSE IN PRN (19:00)
--- NOTE | 2020-01-25 19:15 | NUR ---
OPENING NOTE- NOC SHIFT] RECEIVED REPORT FROM DAY SHIFT NURSE PATRICIO ORTIZ. PATIENT IS COMFORTABLE IN BED, PRESENTS WITH HR OF 180 PER REPORT. PATRICIO ORTIZ RECEIVED ORDERS FROM DR GUDINO FOR HEART RATE, THIS NURSE WILL ADMINISTER PO ORDERS. PATIENT IS ASYMPTOMATIC. NO S/SX OF DISTRESS, SOB OR PAIN. WILL CONTINUE TO MONITOR Q1H AND PRN.
--- NOTE | 2020-01-25 19:36 | NUR ---
Called Hospitalist and spoke to Dr. Pringle, doctor informed of pt's heart rate increasing to 150s to 180s, doctor informed that pt's heart rate decreased to 110 to 120s, pt's bp 118/66, orders received to place pt on amiodarone 400 mg po tid for 3 days and amiodarone 200 mg po qd after that.
[2020-01-25 20:15] VITALS: BP 107/67
[2020-01-25 22:00] VITALS: BP 107/67
[2020-01-25] MEDS: AMIODARONE HCL 200 MG TAB PO SCH (22:38)
[2020-01-25] MEDS: BUDESONIDE (INHALATION) 180 MCG IH IN SCH (22:49)
--- NOTE | 2020-01-26 01:15 | NUR ---
PATIENT SAT O2 AT 86% WHILE ON ROOM AIR. PATIENT PLACED ON 4L NC, NOW SAT O2 AT 94%. WILL CONTINUE TO MONITOR. PATIENT IS ON CONTINUOUS GUARD DRIVER. PATIENT IS ALERT AND ORIENTED X4 AND ANSWERS IN COMPLETE SENTENCES. NO S/SX OF DISTRESS, SOB OR PAIN.
--- NOTE | 2020-01-26 02:20 | NUR ---
COUGH MEDICINE GIVEN TO PATIENT PER PATIENT REQUEST. PATIENT PRESENTS WITH DRY NON- PRODUCTIVE COUGH. HR RISES TO 140s WHEN COUGHING.
[2020-01-26] MEDS: guaiFENesin-DM 100/10mg/5ml SYR PO PRN ×3 (02:21→12:39)
[2020-01-26 05:00] VITALS: BP 99/75
[2020-01-26] MEDS: AMIODARONE HCL 200 MG TAB PO SCH ×3 (05:51→21:54)
--- NOTE | 2020-01-26 07:06 | NUR ---
CLOSING NOTE- NOC SHIFT PATIENT IS ALERT AND ORIENTED X4. PATIENT IS COMFORTABLE IN BED. NO S/SX OF DISTRESS, SOB OR PAIN. WILL ENDORSE PATIENT CARE TO DAY SHIFT NURSE. PATIENT CURRENT HEART RATE IS 92.
[2020-01-26 07:15] LABS: Basophils # (auto) 0 10 ^3/uL (0-0.2); Eosinophils # (auto) 0 10 ^3/uL (0-0.8); Mean Corpuscular Hemoglobin 20.5 pg (28.0-32.0); Monocytes # (auto) 0.6 10 ^3/uL (0-1.3); Nucleated Red Blood Cells % 0.1 %
[2020-01-26 07:21] LABS: Hematocrit 30.9 % (41.0-53.0); Hemoglobin 9.4 g/dL (13.5-17.5); Lymphocytes # (auto) 0.9 10 ^3/uL (0.4-5.4); Lymphocytes % (auto) 4.7 % (10.0-50.0); Mean Corpuscular Hgb Conc. 30.4 g/dL (32.0-36.0); Mean Corpuscular Volume 67.7 fL (80.0-100.0); Monocytes % (auto) 3.4 % (0.0-12.0); Neutrophils # (auto) 17.7 10 ^3/uL (1.6-8.6); Neutrophils % (auto) 91.9 % (37.0-80.0); Platelet Count (auto) 309 10^3/uL (140-450); Red Blood Cells 4.56 10^6/uL (4.5-5.90); White Blood Cell 19.2 10^3/uL (4.4-10.8)
[2020-01-26 07:22] LABS: BUN/Creatinine Ratio 19.3; Calcium 9.6 mg/dL (8.5-10.1); Potassium 4.3 mmol/L (3.5-5.1)
[2020-01-26 07:43] LABS: Red Cell Distribution Width 31.1 % (11.8-14.3)
[2020-01-26 08:40] VITALS: BP 99/78
[2020-01-26] MEDS: cefTRIAXone 1GM/50ML D5W 50 ML IV SCH (08:57)
[2020-01-26] MEDS: PANTOPRAZOLE 40 MG/10 ML VIAL INJ IV SCH (09:14)
[2020-01-26] MEDS: ZINC SULFATE 220mg CAP or TAB PO SCH (09:15)
[2020-01-26] MEDS: CHOLECALCIFEROL (VITD3) 2,000 UNIT CAP PO SCH (09:16)
[2020-01-26] MEDS: ASCORBIC ACID 1,000 MG TAB PO SCH (09:16)
[2020-01-26] MEDS: DexAMETHasone SOD PHOS 4 MG/1ML SDV INJ IV SCH (09:18)
[2020-01-26] MEDS: BUDESONIDE (INHALATION) 180 MCG IH IN SCH ×2 (10:00→21:21)
[2020-01-26] MEDS: AZITHROMYCIN 500MG/ 250ML 250 ML IV SCH (10:55)
[2020-01-26 12:00] VITALS: BP 92/59
[2020-01-26] MEDS: SODIUM FERR GLUC 62.5MG/5ML 125 MG in SODIUM CHL 0.9% 100 ML IV SCH (12:40)
--- NOTE | 2020-01-26 14:11 | NUR ---
Nutrition Assessment Notes Please refer to link for full assessment notes. Est Energy needs: 2653-6658 kcals (23-25 kcal/kgBW) Est Protein needs: 62-78 gms/day (0.8-1.0 gm/kgBW) Will continue to monitor and reassess prn. Addendum: 01/26/20 at [address] Amended: Links added.
[2020-01-26] MEDS ORDERED: FUROSEMIDE 20 MG TAB PO ONE (14:15)
[2020-01-26] MEDS ORDERED: POTASSIUM CHL 10 Meq TABLET PO ONE (14:15)
[2020-01-26] MEDS ORDERED: REMDESIVIR PER PHARMACY 0 ML IV SCH (14:15)
[2020-01-26] MEDS ORDERED: DIGOXIN (250MCG/ML) 2 ML AMPULE IV ONE ×2 (15:00→17:15)
[2020-01-26] MEDS: ALBUTEROL SULF HFA 90MCG INH 200DOSE IN PRN ×2 (15:14→23:15)
[2020-01-26 16:40] VITALS: BP 98/61
--- NOTE | 2020-01-26 18:30 | NUR ---
Patient AOx4, able to ambulate to bedside commode. Patient's BP remains on the lower side 90s/60s. at 1507 BP was 107/61, HR 78. Dr. Alfaro called and held the dose 250mcg digoxin IV and ordered 125mcg digoxin one dose per telephone order. Dr. Ron called at 1420 to turn off the chest tube suction. ANGEL Lal took the message and when I got back from lunch break at 1430, I stopped the chest tube suction. Patient has non productive cough, prn Robitussin given. patient had one BM today, stool sample send. will continue to monitor patient.
[2020-01-26 18:53] LABS: Albumin 2.9 g/dL (3.4-5.0); Bilirubin, Direct 0.3 mg/dL (0-0.2)
[2020-01-26 18:56] LABS: Bilirubin, Total 0.7 mg/dL (0.2-1.0); Total Protein 8.3 g/dL (6.4-8.2)
--- NOTE | 2020-01-26 19:30 | NUR ---
Opening Shift Note Assumed care of patient, awake and alert. No S/S of distress/SOB or pain. Patient safety measures in place bed in lowest position, side rails up x2, and call light within reach. Instructed on POC and to call for assist PRN, will continue to monitor for changes Q1hr and PRN.
[2020-01-26 21:35] VITALS: BP 97/49
[2020-01-26] MEDS ORDERED: REMDESIVIR 200 MG in NS 210ml LOADING DOSE ADULT IV ONE (22:45)
--- NOTE | 2020-01-26 22:45 | NUR ---
Pharmacy called to inform that the Remdesivir was sent to the unit. Asked for verification if it is safe to administer the medication if the patient's BP is 97/49 since it is a loading dose of the medication. Pharmacist was unable to clarify. Paged hospitalist for further clarification. Will continue to monitor every hour and as needed.
[2020-01-27] VITALS (10 sets, daily range): BP systolic 96–120; BP diastolic 57–69
--- NOTE | 2020-01-27 00:23 | NUR ---
Hospitalist Noreen PIRES returned page. Orders received.
[2020-01-27] MEDS ORDERED: SODIUM CHLORIDE 0.9% 500 ML IV ONE (00:30)
--- NOTE | 2020-01-27 02:18 | NUR ---
Remdesivir administration started. 1st dose. BP 107/66, HR 73, O2 99%, RR 20, T 97.7. Will reassess at 0233.
--- NOTE | 2020-01-27 02:33 | NUR ---
Remdesivir administration tolerated. BP 120/69, HR 65, O2 96%, RR 21, T 97.9.
--- NOTE | 2020-01-27 03:23 | NUR ---
POST INFUSION VITALS 02 95%, BP 90/57, HR 70, RR 20, T 97.9. Will reassess in one hour.
--- NOTE | 2020-01-27 04:23 | NUR ---
Post Remdesivir vitals BP 104/63, O2 97%, HR 70, RR 20, T 97.7.
[2020-01-27] MEDS: BUDESONIDE (INHALATION) 180 MCG IH IN SCH ×2 (06:20→22:00)
[2020-01-27] MEDS: AMIODARONE HCL 200 MG TAB PO SCH ×3 (06:21→21:29)
[2020-01-27] MEDS: PANTOPRAZOLE 40 MG/10 ML VIAL INJ IV SCH (09:53)
[2020-01-27] MEDS: cefTRIAXone 1GM/50ML D5W 50 ML IV SCH (09:53)
[2020-01-27] MEDS: ZINC SULFATE 220mg CAP or TAB PO SCH (09:54)
[2020-01-27] MEDS: AZITHROMYCIN 500MG/ 250ML 250 ML IV SCH ×2 (09:54→12:04)
[2020-01-27] MEDS: POTASSIUM CHL 10 Meq TABLET PO SCH (09:55)
[2020-01-27] MEDS: DIGOXIN 0.125 MG TAB PO SCH (09:55)
[2020-01-27] MEDS: CHOLECALCIFEROL (VITD3) 2,000 UNIT CAP PO SCH (09:56)
[2020-01-27] MEDS: ASCORBIC ACID 1,000 MG TAB PO SCH (09:56)
[2020-01-27] MEDS: FUROSEMIDE 20 MG TAB PO SCH (10:00)
[2020-01-27] MEDS: DexAMETHasone SOD PHOS 4 MG/1ML SDV INJ IV SCH (12:03)
[2020-01-27 12:17] LABS: Basophils # (auto) 0 10 ^3/uL (0-0.2); Eosinophils # (auto) 0 10 ^3/uL (0-0.8); Hemoglobin 8.9 g/dL (13.5-17.5); Neutrophils % (auto) 92.8 % (37.0-80.0)
[2020-01-27 12:21] LABS: Basophils % (auto) 0.1 % (0.0-2.0); Lymphocytes # (auto) 0.6 10 ^3/uL (0.4-5.4); Lymphocytes % (auto) 3.5 % (10.0-50.0); Mean Corpuscular Hemoglobin 21.2 pg (28.0-32.0); Mean Corpuscular Hgb Conc. 30.8 g/dL (32.0-36.0); Mean Corpuscular Volume 68.9 fL (80.0-100.0); Monocytes # (auto) 0.6 10 ^3/uL (0-1.3); Monocytes % (auto) 3.6 % (0.0-12.0); Neutrophils # (auto) 14.8 10 ^3/uL (1.6-8.6); Platelet Count (auto) 278 10^3/uL (140-450); Red Blood Cells 4.21 10^6/uL (4.5-5.90); White Blood Cell 15.9 10^3/uL (4.4-10.8)
[2020-01-27 12:32] LABS: Red Cell Distribution Width 31.1 % (11.8-14.3)
--- NOTE | 2020-01-27 12:57 | NUR ---
UNABLE TO GET [facility] OF BLOOD BANK FOR PLASMA
[2020-01-27 13:17] LABS: Albumin 2.4 g/dL (3.4-5.0); BUN/Creatinine Ratio 20.8; Bilirubin, Total 0.4 mg/dL (0.2-1.0); Calcium 9.3 mg/dL (8.5-10.1); Total Protein 7.5 g/dL (6.4-8.2)
[2020-01-27] MEDS: SODIUM FERR GLUC 62.5MG/5ML 125 MG in SODIUM CHL 0.9% 100 ML IV SCH (14:16)
--- NOTE | 2020-01-27 15:13 | NUR ---
Pt was able to sit at the edge of the bed and complete 10 to 15 reps of bedside ther ex. Pt was then xfrd to the [facility] and was sitting up for approx 15min. Pt was xfrd back to bed w/ Isma and was left in supine along with call light within reach. Addendum: 01/27/20 at 1515 by Pam Toney PT Amended: Links added.
--- NOTE | 2020-01-27 16:19 | NUR ---
DR. MOSS AT BEDSIDE. REMOVED CHEST TUBE. PATIENT TOLERATED PROCEDURE WELL. NO PAIN NOTED. MD SIGNED CONSENTS TO RECEIVE PLASMA.
[2020-01-27] MEDS: REMDESIVIR 100 MG in SODIUM CHL 0.9% 250 ML IV SCH (16:47)
--- NOTE | 2020-01-27 19:10 | NUR ---
Opening Shift Note Assumed care of patient, awake and alert. No S/S of distress/SOB or pain. Instructed on POC and to call for assist PRN, will continue to monitor for changes Q1hr and PRN.
[2020-01-27] MEDS: ALBUTEROL SULF HFA 90MCG INH 200DOSE IN PRN (22:50)
[2020-01-28 05:00] VITALS: BP 99/61
[2020-01-28] MEDS: BUDESONIDE (INHALATION) 180 MCG IH IN SCH ×2 (06:29→21:00)
[2020-01-28] MEDS: ALBUTEROL SULF HFA 90MCG INH 200DOSE IN PRN (06:29)
[2020-01-28] MEDS: AMIODARONE HCL 200 MG TAB PO SCH ×3 (06:29→21:23)
[2020-01-28 07:28] LABS: Basophils # (auto) 0.1 10 ^3/uL (0-0.2); Eosinophils # (auto) 0 10 ^3/uL (0-0.8); Hemoglobin 9.1 g/dL (13.5-17.5); Lymphocytes # (auto) 0.5 10 ^3/uL (0.4-5.4); White Blood Cell 9.7 10^3/uL (4.4-10.8)
[2020-01-28 07:32] LABS: Basophils % (auto) 1.1 % (0.0-2.0); Hematocrit 29.7 % (41.0-53.0); Lymphocytes % (auto) 4.9 % (10.0-50.0); Mean Corpuscular Hemoglobin 21.1 pg (28.0-32.0); Mean Corpuscular Hgb Conc. 30.6 g/dL (32.0-36.0); Mean Corpuscular Volume 68.9 fL (80.0-100.0); Monocytes # (auto) 0.4 10 ^3/uL (0-1.3); Neutrophils # (auto) 8.7 10 ^3/uL (1.6-8.6); Nucleated Red Blood Cells % 0.2 %; Platelet Count (auto) 297 10^3/uL (140-450); Red Blood Cells 4.31 10^6/uL (4.5-5.90)
[2020-01-28 07:37] LABS: Red Cell Distribution Width 32.3 % (11.8-14.3)
[2020-01-28 07:45] LABS: Albumin 2.4 g/dL (3.4-5.0); Potassium 4.6 mmol/L (3.5-5.1)
[2020-01-28 07:53] LABS: BUN/Creatinine Ratio 24.4; Bilirubin, Total 0.3 mg/dL (0.2-1.0); Total Protein 7.3 g/dL (6.4-8.2)
[2020-01-28] MEDS: cefTRIAXone 1GM/50ML D5W 50 ML IV SCH (08:41)
[2020-01-28 09:00] VITALS: BP 95/55
[2020-01-28] MEDS: PANTOPRAZOLE 40 MG/10 ML VIAL INJ IV SCH (10:21)
[2020-01-28] MEDS: AZITHROMYCIN 500MG/ 250ML 250 ML IV SCH (10:22)
[2020-01-28] MEDS: ZINC SULFATE 220mg CAP or TAB PO SCH (10:22)
[2020-01-28] MEDS: POTASSIUM CHL 10 Meq TABLET PO SCH (10:23)
[2020-01-28] MEDS: CHOLECALCIFEROL (VITD3) 2,000 UNIT CAP PO SCH (10:24)
[2020-01-28] MEDS: DIGOXIN 0.125 MG TAB PO SCH (10:24)
[2020-01-28] MEDS: ASCORBIC ACID 1,000 MG TAB PO SCH (10:24)
[2020-01-28] MEDS: FUROSEMIDE 20 MG TAB PO SCH (10:25)
[2020-01-28] MEDS: DexAMETHasone SOD PHOS 4 MG/1ML SDV INJ IV SCH (11:57)
[2020-01-28] MEDS: SODIUM FERR GLUC 62.5MG/5ML 125 MG in SODIUM CHL 0.9% 100 ML IV SCH (11:57)
[2020-01-28 13:00] VITALS: BP 98/57
[2020-01-28] MEDS: REMDESIVIR 100 MG in SODIUM CHL 0.9% 250 ML IV SCH (15:37)
[2020-01-28 17:00] VITALS: BP 98/60
[2020-01-29 01:22] VITALS: BP 99/60
[2020-01-29] MEDS: AMIODARONE HCL 200 MG TAB PO SCH (05:52)
[2020-01-29 07:03] LABS: Albumin 2.4 g/dL (3.4-5.0); Calcium 9.6 mg/dL (8.5-10.1); Potassium 4.4 mmol/L (3.5-5.1)
[2020-01-29 07:08] LABS: BUN/Creatinine Ratio 23.9; Bilirubin, Total 0.3 mg/dL (0.2-1.0); Total Protein 7.3 g/dL (6.4-8.2)
[2020-01-29 08:00] VITALS: BP 95/55
[2020-01-29] MEDS: DexAMETHasone SOD PHOS 4 MG/1ML SDV INJ IV SCH (10:00)
[2020-01-29] MEDS: ALBUTEROL SULF HFA 90MCG INH 200DOSE IN PRN ×2 (10:13→22:23)
[2020-01-29] MEDS: BUDESONIDE (INHALATION) 180 MCG IH IN SCH ×2 (10:13→22:23)
[2020-01-29] MEDS: PANTOPRAZOLE 40 MG/10 ML VIAL INJ IV SCH (11:43)
[2020-01-29] MEDS: cefTRIAXone 1GM/50ML D5W 50 ML IV SCH (11:43)
[2020-01-29] MEDS: ZINC SULFATE 220mg CAP or TAB PO SCH (11:45)
[2020-01-29] MEDS: AZITHROMYCIN 500MG/ 250ML 250 ML IV SCH (11:45)
[2020-01-29] MEDS: POTASSIUM CHL 10 Meq TABLET PO SCH (11:45)
[2020-01-29] MEDS: DIGOXIN 0.125 MG TAB PO SCH (11:45)
[2020-01-29] MEDS: CHOLECALCIFEROL (VITD3) 2,000 UNIT CAP PO SCH (11:46)
[2020-01-29] MEDS: ASCORBIC ACID 1,000 MG TAB PO SCH (11:46)
[2020-01-29] MEDS: FUROSEMIDE 20 MG TAB PO SCH (11:46)
[2020-01-29] MEDS: SODIUM FERR GLUC 62.5MG/5ML 125 MG in SODIUM CHL 0.9% 100 ML IV SCH (12:56)
[2020-01-29 13:00] VITALS: BP 129/72
--- NOTE | 2020-01-29 15:45 | NUR ---
ATTEMPTED CALL TO [facility] PATIENT FAMILY TO CONTACT ON FACE SHEET PHONE NUMBER [phone] NOT IN SERVICE. ATTEMPTED CALL TO VERIFY WALKER AT HOME. PER PATIENT HE DOES NOT KNOW A SARAH CHENG AND DOES NOT HAVE A BROTHER WHICH IS ON PATIENT NEXT OF KIN CONTACT
[2020-01-29] MEDS: REMDESIVIR 100 MG in SODIUM CHL 0.9% 250 ML IV SCH (15:53)
--- NOTE | 2020-01-29 15:53 | NUR ---
DOES NOT HAVE HOME WALKER SPOKE TO FAMILY SARAH IS PATIENT BROTHER ZE, PER SARAH PATIENT DOES NOT HAVE AN AT HOME WALKER.
--- NOTE | 2020-01-29 15:53 | NUR ---
REMDESIVIR BEGUN PATIENT BP 101/63MMHG
[2020-01-29] MEDS ORDERED: FUROSEMIDE 20 MG/2 ML VIAL IV ONE (16:00)
[2020-01-29] MEDS ORDERED: POTASSIUM CHL 20 Meq TABLET PO ONE (16:00)
--- NOTE | 2020-01-29 16:19 | NUR ---
REMDESIVIR PATIENT VITALS STABLE BP AFTER 15 MINUTES 122/66 PATIENT DENIES FEELING SWEATY DIZZY OR SOB
--- NOTE | 2020-01-29 16:38 | NUR ---
Nutrition Followup Notes Pt wt is 60.9 kg. Pt is positive for COVID, in isolation. Pt is with a Cardiac 2gNa diet, appetite is good aeb ave 89% x4 PO intake per RN doc. Est Energy needs: 9582-4627 kcals (23-25 kcal/kgBW) Est Protein needs: 62-78 gms/day (0.8-1.0 gm/kgBW) Will continue to monitor and reassess prn. LABS: BUN 22 H, Alb 2.4 L GI: Pt had 1 BM on 01/27 per RN doc. BS: 20 low risk. Refer to wound assessment report for further details PES: Underweight r/t energy intake is less than energy needs aeb BMI of 17.3 kg/m2 Comments Will continue to monitor PO status, skin status, pertinent labs and weight trends. Will f/u in 3-5 days 1) Continue to closely monitor pt PO intake to meet at least 75% of meals 2) Continue current plan of care
[2020-01-29 17:00] VITALS: BP 110/65
[2020-01-29 22:00] VITALS: BP 110/62
--- NOTE | 2020-01-30 07:35 | NUR ---
Opening Shift Note Assumed care of patient, awake and alert. No S/S of distress/SOB or pain. Safety measures in place, bed locked in lowest position, call light within reach. Instructed on POC and to call for assist PRN, will continue to monitor for changes Q1hr and PRN.
[2020-01-30 08:00] VITALS: BP 101/66
[2020-01-30 08:16] LABS: Potassium 4.3 mmol/L (3.5-5.1)
[2020-01-30 08:40] LABS: Albumin 2.6 g/dL (3.4-5.0); BUN/Creatinine Ratio 21.3; Bilirubin, Total 0.3 mg/dL (0.2-1.0); Calcium 9.4 mg/dL (8.5-10.1); Total Protein 7.9 g/dL (6.4-8.2)
[2020-01-30] MEDS: ZINC SULFATE 220mg CAP or TAB PO SCH (08:43)
[2020-01-30] MEDS: FUROSEMIDE 20 MG TAB PO SCH (08:44)
[2020-01-30] MEDS: DIGOXIN 0.125 MG TAB PO SCH (08:44)
[2020-01-30] MEDS: POTASSIUM CHL 10 Meq TABLET PO SCH (08:44)
[2020-01-30] MEDS: ASCORBIC ACID 1,000 MG TAB PO SCH (08:45)
[2020-01-30] MEDS: CHOLECALCIFEROL (VITD3) 2,000 UNIT CAP PO SCH (08:46)
[2020-01-30] MEDS ORDERED: cefTRIAXone 1GM/50ML D5W 50 ML IV SCH (09:00)
[2020-01-30] MEDS ORDERED: FAMOTIDINE 20 MG TAB PO SCH (10:00)
[2020-01-30] MEDS ORDERED: AMIODARONE HCL 200 MG TAB PO SCH (10:00)
[2020-01-30] MEDS: AZITHROMYCIN 500MG/ 250ML 250 ML IV SCH (10:57)
[2020-01-30 12:00] VITALS: BP 109/65
[2020-01-30] MEDS: DexAMETHasone SOD PHOS 4 MG/1ML SDV INJ IV SCH (12:35)
--- NOTE | 2020-01-30 12:40 | NUR ---
Doctor at bedside Dr. Ron updating patient and this RN on plan of care.
[2020-01-30] MEDS: SODIUM FERR GLUC 62.5MG/5ML 125 MG in SODIUM CHL 0.9% 100 ML IV SCH (13:24)
[2020-01-30] MEDS: REMDESIVIR 100 MG in SODIUM CHL 0.9% 250 ML IV SCH (15:15)
--- NOTE | 2020-01-30 15:15 | NUR ---
Remdesivir started. BP 110/69, HR 75, respirations 18, Sao2 97%.Will continue to monitor.
--- NOTE | 2020-01-30 15:30 | NUR ---
Remdesivir running at 270 mls/hr. Patient tolerating well, HR 66, BP 108/61. Will continue to monitor.
--- NOTE | 2020-01-30 15:35 | NUR ---
SS consult for fww and home oxygen. Pt is an alert and oriented male that has been residing with two rommates prior to admission. Pt states he will be able to return upon discharge. Pt states his family will transport him home. Contacted [facility] and faxed clinical information for order. Also contacted [employer] case fitter, and faxed clinical information for authorization. Per [facility] portable tank and concentrator, per pts request, to be delivered to bedside between 2:30/3:30 today. No further SS concerns/needs.
--- NOTE | 2020-01-30 16:38 | NUR ---
Remdesivir finished, patient tolerated well. HR 68, BP 110/64.
[2020-01-30 17:08] VITALS: BP 101/66
[2020-01-30] MEDS: BUDESONIDE (INHALATION) 180 MCG IH IN SCH (17:12)
--- NOTE | 2020-01-30 18:31 | NUR ---
TELE BOX 87 REMOVED, CLEANED AND SENT BACK TO MONITOR TECHS.
--- NOTE | 2020-01-30 18:31 | NUR ---
IV removal IV DC'd with sterile technique, catheter fully intact. Pressure dressing applied to site. Patient tolerated procedure well.
--- NOTE | 2020-01-30 19:25 | NUR ---
Discharge instructions given as ordered. Encourage to follow up with PMD as instructed. All questions and concerns addressed. Patient verbalized understanding. Medication reconciliation form completed and copy given to patient. IV removed with catheter intact, pressure dressing applied. Telemetry unit returned to ICU. Patient taken to vehicle via wheelchair with all personal belongings, accompanied by staff. No distress noted at time of departure.
== END 2020-01-30 19:25 | disposition home or self-care (01) | DRG 720 ==
LOC: ER 14:07 → DOU 16:18 → TELE 01-23 00:20 → TELE-WESTW 01-25 15:56
PROVIDERS: ADMIT Nurse Practitioner Acute Care; ATTEND Internal Medicine
PROC: 0W9B30Z Drainage of Left Pleural Cavity with Drainage Device, Percutaneous Approach (ICD-10-PCS; 2020-01-22)
PROC: 30230N1 Transfusion of Nonautologous Red Blood Cells into Peripheral Vein, Open Approach (ICD-10-PCS; principal; 2020-01-23)
PROC: XW033E5 Introduction of Remdesivir Anti-infective into Peripheral Vein, Percutaneous Approach, New Technology Group 5 (ICD-10-PCS; 2020-01-26)
PROC: XW13325 Transfusion of Convalescent Plasma (Nonautologous) into Peripheral Vein, Percutaneous Approach, New Technology Group 5 (ICD-10-PCS; 2020-01-27)
DX: A41.89 Other specified sepsis (principal); U07.1 COVID-19; J12.89 Other viral pneumonia; J96.01 Acute respiratory failure with hypoxia; N17.0 Acute kidney failure with tubular necrosis; D68.59 Other primary thrombophilia; K92.2 Gastrointestinal hemorrhage, unspecified; Z79.01 Long term (current) use of anticoagulants; F17.210 Nicotine dependence, cigarettes, uncomplicated; F20.9 Schizophrenia, unspecified; I12.9 Hypertensive chronic kidney disease with stage 1 through stage 4 chronic kidney disease, or unspecified chronic kidney disease; I25.10 Atherosclerotic heart disease of native coronary artery without angina pectoris; I48.20 Chronic atrial fibrillation, unspecified; J98.11 Atelectasis; N18.30 Chronic kidney disease, stage 3 unspecified; Z79.82 Long term (current) use of aspirin; Z79.899 Other long term (current) drug therapy; Z95.2 Presence of prosthetic heart valve; Z95.5 Presence of coronary angioplasty implant and graft; D50.9 Iron deficiency anemia, unspecified; J93.9 Pneumothorax, unspecified
CPT/HCPCS: 36415; 71045; 80048; 80053; 80076; 80162; 81001; 82270; 82728; 83540; 83550; 83605; 83615; 83735; 84443; 85025; 85379; 85610; 85730; 86141; 86850; 86900; 86901; 86920; 87426; 87804; 93005; 93306; 94640; 97110; 97116; 97163; 97530; C9113; G0378; J0696; J1100; J2405

== ENCOUNTER 2020-04-20 16:55 | Inpatient (IN) | payer MEDICAID, OTHER ==
[~2020-04-20] VITALS: Ht 165.1 cm; Wt 61.9 kg
[~2020-04-20 16:55] MED LIST changes: -FURO20TA3 PO; +PANT40TA2 PO; -POTA10TA51 PO; +RIVA20TA PO
[2020-04-20 18:05] LABS: Basophils # (auto) 0 10 ^3/uL (0-0.2); Basophils % (auto) 0.4 % (0.0-2.0); Eosinophils # (auto) 0 10 ^3/uL (0-0.8); Eosinophils % (auto) 0.1 % (0.0-7.0); Hematocrit 51.6 % (41.0-53.0); Lymphocytes # (auto) 0.5 10 ^3/uL (0.4-5.4); Lymphocytes % (auto) 7.8 % (10.0-50.0); Mean Corpuscular Hemoglobin 33.4 pg (28.0-32.0); Mean Corpuscular Volume 101.1 fL (80.0-100.0); Monocytes # (auto) 0.4 10 ^3/uL (0-1.3); Monocytes % (auto) 6.4 % (0.0-12.0); Neutrophils # (auto) 5.9 10 ^3/uL (1.6-8.6); Neutrophils % (auto) 85.3 % (37.0-80.0); Nucleated Red Blood Cells % 0.1 %; Platelet Count (auto) 151 10^3/uL (140-450); Red Cell Distribution Width 14.4 % (11.8-14.3); White Blood Cell 6.9 10^3/uL (4.4-10.8)
[2020-04-20 18:20] LABS: INR 1.04 (0.9-1.15); Partial Thromboplastin Time 25.9 sec (23.0-31.2)
[2020-04-20 19:57] LABS: Albumin 4.3 g/dL (3.4-5.0); Anion Gap 15 (5-15); Blood Alcohol < 3.0 mg/dL (0-5); Blood Urea Nitrogen 12 mg/dL (7-18); Calcium 9.8 mg/dL (8.5-10.1); Carbon Dioxide 19 mmol/L (21-32); Chloride 107 mmol/L (98-107); Glucose 75 mg/dL (74-106); Magnesium 2.5 mg/dL (1.6-2.6); Potassium 4.6 mmol/L (3.5-5.1); Sodium 141 mmol/L (136-145)
[2020-04-20 20:04] LABS: Alanine Aminotransferase 53 U/L (16-61); Alkaline Phosphatase 84 U/L (45-117); Aspartate Aminotransferase 45 U/L (15-37); Bilirubin, Total 0.6 mg/dL (0.2-1.0); GFR African American 99 mL/min; GFR Non-African American 82 mL/min; Total Protein 8.8 g/dL (6.4-8.2)
[2020-04-20] MEDS ORDERED: ONDANSETRON HCL 4 MG/2 ML VIAL IV PRN (22:45)
[2020-04-20] MEDS ORDERED: ACETAMINOPHEN 325 MG TAB PO PRN (22:45)
[2020-04-20] MEDS ORDERED: NITROGLYCERIN 0.4 MG SL TAB SL PRN (22:45)
[2020-04-20] MEDS ORDERED: HYDROcodone-ACET 5/325MG TAB PO PRN (22:45)
[2020-04-20] MEDS ORDERED: DOCUSATE SOD 100 MG CAP PO PRN (22:45)
[2020-04-20] MEDS ORDERED: MORPHINE SULF INJ 2 MG/ML SYRINGE 1ML IV PRN (22:45)
[2020-04-21 01:48] VITALS: BP 133/86
[2020-04-21] MEDS ORDERED: FERR-20 PO (03:36)
[2020-04-21 05:00] VITALS: BP 128/86
[2020-04-21] MEDS: D5W/SOD CHL 0.45% 1,000 ML IV SCH ×2 (05:20→14:03)
[2020-04-21 10:00] LABS: Albumin 4.1 g/dL (3.4-5.0); Basophils # (auto) 0 10 ^3/uL (0-0.2); Basophils % (auto) 0.6 % (0.0-2.0); Calcium 9.8 mg/dL (8.5-10.1); Eosinophils # (auto) 0 10 ^3/uL (0-0.8); Eosinophils % (auto) 0.1 % (0.0-7.0); Hematocrit 49.9 % (41.0-53.0); Hemoglobin 16.6 g/dL (13.5-17.5); Lymphocytes # (auto) 1.3 10 ^3/uL (0.4-5.4); Lymphocytes % (auto) 21.7 % (10.0-50.0); Mean Corpuscular Hgb Conc. 33.3 g/dL (32.0-36.0); Monocytes # (auto) 0.5 10 ^3/uL (0-1.3); Monocytes % (auto) 8.9 % (0.0-12.0); Neutrophils # (auto) 4.1 10 ^3/uL (1.6-8.6); Neutrophils % (auto) 68.7 % (37.0-80.0); Nucleated Red Blood Cells % 0.1 %; Platelet Count (auto) 162 10^3/uL (140-450); Potassium 4.8 mmol/L (3.5-5.1); Red Blood Cells 5.04 10^6/uL (4.5-5.90); Red Cell Distribution Width 14.2 % (11.8-14.3); White Blood Cell 5.9 10^3/uL (4.4-10.8)
[2020-04-21 10:02] LABS: BUN/Creatinine Ratio 14.4; Bilirubin, Total 0.5 mg/dL (0.2-1.0); Total Protein 8.6 g/dL (6.4-8.2)
[2020-04-21] MEDS: ZINC SULFATE 220mg CAP or TAB PO SCH (10:10)
[2020-04-21] MEDS: ENOXAPARIN SOD 40 MG/0.4 ML SYRINGE SC SCH (10:11)
[2020-04-21] MEDS: ASCORBIC ACID 500 MG TAB PO SCH ×2 (10:11→21:38)
[2020-04-21] MEDS: FAMOTIDINE 20 MG TAB PO SCH ×2 (10:11→21:38)
[2020-04-21] MEDS: MULTIPLE VITAMIN TAB PO SCH (10:11)
[2020-04-21 13:00] VITALS: BP 142/87
[2020-04-21] MEDS ORDERED: cefTRIAXone 1GM/50ML D5W 50 ML IV ONE (13:15)
[2020-04-21 17:00] VITALS: BP 148/77
[2020-04-21 22:00] VITALS: BP 119/85
[2020-04-22] MEDS: D5W/SOD CHL 0.45% 1,000 ML IV SCH (01:25)
[2020-04-22 05:00] VITALS: BP 109/61
[2020-04-22 06:47] LABS: Basophils # (auto) 0.1 10 ^3/uL (0-0.2); Basophils % (auto) 1.3 % (0.0-2.0); Eosinophils # (auto) 0 10 ^3/uL (0-0.8); Eosinophils % (auto) 0.4 % (0.0-7.0); Hematocrit 49.8 % (41.0-53.0); Hemoglobin 16.6 g/dL (13.5-17.5); Lymphocytes # (auto) 1.7 10 ^3/uL (0.4-5.4); Mean Corpuscular Hgb Conc. 33.4 g/dL (32.0-36.0); Mean Corpuscular Volume 98.8 fL (80.0-100.0); Monocytes # (auto) 0.4 10 ^3/uL (0-1.3); Monocytes % (auto) 8.1 % (0.0-12.0); Neutrophils % (auto) 57.2 % (37.0-80.0); Nucleated Red Blood Cells % 0.1 %; Platelet Count (auto) 149 10^3/uL (140-450); Red Blood Cells 5.04 10^6/uL (4.5-5.90); Red Cell Distribution Width 13.7 % (11.8-14.3); White Blood Cell 5.2 10^3/uL (4.4-10.8)
[2020-04-22 07:17] LABS: Chloride 107 mmol/L (98-107); Potassium 3.8 mmol/L (3.5-5.1); Sodium 139 mmol/L (136-145)
[2020-04-22 07:32] LABS: Alanine Aminotransferase 44 U/L (16-61); Albumin 3.6 g/dL (3.4-5.0); Alkaline Phosphatase 74 U/L (45-117); Anion Gap 10 (5-15); Aspartate Aminotransferase 38 U/L (15-37); BUN/Creatinine Ratio 15.9; Bilirubin, Total 0.4 mg/dL (0.2-1.0); Blood Urea Nitrogen 14 mg/dL (7-18); Calcium 9.4 mg/dL (8.5-10.1); Carbon Dioxide 22 mmol/L (21-32); GFR African American 115 mL/min; GFR Non-African American 95 mL/min; Glucose 102 mg/dL (74-106); Total Protein 7.9 g/dL (6.4-8.2)
[2020-04-22 09:00] VITALS: BP 139/73
[2020-04-22] MEDS ORDERED: cefTRIAXone 1GM/50ML D5W 50 ML IV SCH (09:00)
[2020-04-22] MEDS: FAMOTIDINE 20 MG TAB PO SCH ×2 (10:00→21:35)
[2020-04-22] MEDS: ASCORBIC ACID 500 MG TAB PO SCH ×2 (10:00→21:35)
[2020-04-22] MEDS: MULTIPLE VITAMIN TAB PO SCH (10:00)
[2020-04-22] MEDS: ZINC SULFATE 220mg CAP or TAB PO SCH (10:00)
[2020-04-22] MEDS: ENOXAPARIN SOD 40 MG/0.4 ML SYRINGE SC SCH (10:01)
[2020-04-22 13:02] VITALS: BP 141/68
[2020-04-22 17:00] VITALS: BP 131/79
[2020-04-22 21:00] VITALS: BP 119/73
[2020-04-23 04:58] VITALS: BP 104/64
[2020-04-23 05:38] LABS: Basophils # (auto) 0 10 ^3/uL (0-0.2); Basophils % (auto) 1.1 % (0.0-2.0); Eosinophils # (auto) 0 10 ^3/uL (0-0.8); Eosinophils % (auto) 1.1 % (0.0-7.0); Hematocrit 47.5 % (41.0-53.0); Hemoglobin 15.9 g/dL (13.5-17.5); Lymphocytes # (auto) 1.7 10 ^3/uL (0.4-5.4); Mean Corpuscular Hgb Conc. 33.5 g/dL (32.0-36.0); Mean Corpuscular Volume 98.4 fL (80.0-100.0); Monocytes # (auto) 0.4 10 ^3/uL (0-1.3); Monocytes % (auto) 8.9 % (0.0-12.0); Neutrophils # (auto) 2.1 10 ^3/uL (1.6-8.6); Neutrophils % (auto) 48.9 % (37.0-80.0); Nucleated Red Blood Cells % 0.4 %; Platelet Count (auto) 144 10^3/uL (140-450); Red Blood Cells 4.82 10^6/uL (4.5-5.90); White Blood Cell 4.2 10^3/uL (4.4-10.8)
[2020-04-23 06:03] LABS: Potassium 3.8 mmol/L (3.5-5.1)
[2020-04-23 06:12] LABS: BUN/Creatinine Ratio 15.5; Calcium 9.1 mg/dL (8.5-10.1)
== END 2020-04-23 08:00 | disposition home or self-care (01) | DRG 812 ==
LOC: EDBD 16:55 → ER 16:55 → EDUNIT# 16:55 → TELE 22:42 → TELE-WESTW 04-21 01:46
PROVIDERS: ADMIT Nurse Practitioner Family; ATTEND Internal Medicine
DX: T43.621A Poisoning by amphetamines, accidental (unintentional), initial encounter (principal); G92 Toxic encephalopathy; I10 Essential (primary) hypertension; E78.5 Hyperlipidemia, unspecified; D68.69 Other thrombophilia; I48.0 Paroxysmal atrial fibrillation; Z20.822 Contact with and (suspected) exposure to COVID-19; Y92.89 Other specified places as the place of occurrence of the external cause; Z79.01 Long term (current) use of anticoagulants; Z87.01 Personal history of pneumonia (recurrent)
CPT/HCPCS: 36415; 70450; 71045; 80048; 80053; 80320; 83735; 84443; 84484; 85025; 85610; 85730; 87086; 87426; 93005; 93886; G0378; J0696

== ENCOUNTER 2020-05-22 10:57 | Inpatient (IN) | payer MEDICAID ==
[~2020-05-22] VITALS: Ht 180.3 cm; Wt 68.2 kg
[~2020-05-22 10:57] MED LIST changes: +FERR-20 PO
[2020-05-22] MEDS ORDERED: ASPirin 81 mg TAB PO ONE (11:30)
[2020-05-22 11:41] LABS: Basophils # (auto) 0 10 ^3/uL (0-0.2); Basophils % (auto) 0.6 % (0.0-2.0); Eosinophils # (auto) 0 10 ^3/uL (0-0.8); Eosinophils % (auto) 0.7 % (0.0-7.0); Hematocrit 46.9 % (41.0-53.0); Hemoglobin 15.7 g/dL (13.5-17.5); Lymphocytes # (auto) 1.9 10 ^3/uL (0.4-5.4); Lymphocytes % (auto) 33.3 % (10.0-50.0); Mean Corpuscular Hemoglobin 32.6 pg (28.0-32.0); Mean Corpuscular Hgb Conc. 33.5 g/dL (32.0-36.0); Mean Corpuscular Volume 97.4 fL (80.0-100.0); Monocytes # (auto) 0.6 10 ^3/uL (0-1.3); Monocytes % (auto) 9.7 % (0.0-12.0); Neutrophils # (auto) 3.2 10 ^3/uL (1.6-8.6); Neutrophils % (auto) 55.7 % (37.0-80.0); Nucleated Red Blood Cells % 0.3 %; Platelet Count (auto) 172 10^3/uL (140-450); Red Blood Cells 4.82 10^6/uL (4.5-5.90); Red Cell Distribution Width 14.6 % (11.8-14.3); White Blood Cell 5.7 10^3/uL (4.4-10.8)
[2020-05-22 11:52] LABS: Albumin 3.8 g/dL (3.4-5.0); Anion Gap 6 (5-15); Blood Urea Nitrogen 12 mg/dL (7-18); Calcium 9.3 mg/dL (8.5-10.1); Carbon Dioxide 24 mmol/L (21-32); Chloride 108 mmol/L (98-107); Glucose 88 mg/dL (74-106); Magnesium 2.6 mg/dL (1.6-2.6); Sodium 138 mmol/L (136-145)
[2020-05-22 11:58] LABS: Alanine Aminotransferase 135 U/L (16-61); Alkaline Phosphatase 77 U/L (45-117); Aspartate Aminotransferase 69 U/L (15-37); BUN/Creatinine Ratio 14.6; Bilirubin, Total 0.4 mg/dL (0.2-1.0); GFR African American 125 mL/min; GFR Non-African American 103 mL/min; Total Protein 7.5 g/dL (6.4-8.2)
[2020-05-22 12:34] LABS: INR 1.14 (0.9-1.15)
[2020-05-22] MEDS ORDERED: MORPHINE SULF INJ 2 MG/ML SYRINGE 1ML IV PRN ×2 (13:30)
[2020-05-22] MEDS ORDERED: NITROGLYCERIN 0.4 MG SL TAB SL PRN (13:30)
[2020-05-22] MEDS ORDERED: ONDANSETRON HCL 4 MG/2 ML VIAL IV PRN (13:30)
[2020-05-22] MEDS ORDERED: ACETAMINOPHEN 500 MG TAB PO PRN (13:30)
[2020-05-22] MEDS ORDERED: PANTOPRAZOLE 40 MG/10 ML VIAL INJ IV ONE (13:45)
[2020-05-22] MEDS ORDERED: LISINOPRIL 10 MG TAB PO ONE (13:45)
[2020-05-22] MEDS ORDERED: ASPirin-EC 81 mg tab PO ONE (13:45)
[2020-05-22 17:00] VITALS: BP 127/70
[2020-05-22] MEDS ORDERED: DIGO0.12 PO (17:25)
[2020-05-22] MEDS ORDERED: AMIO200T4 PO (17:25)
[2020-05-22] MEDS: RIVAROXABAN 20 MG TAB PO SCH (17:45)
[2020-05-22] MEDS ORDERED: PATIENTS OWN MEDICATION (Atorvastatin Calcium (Lipitor) 1 TAB) PO SCH (18:00)
[2020-05-22] MEDS: ATORVASTATIN 20 MG TAB PO SCH (22:06)
[2020-05-22 22:28] VITALS: BP 103/63
[2020-05-22 23:00] LABS: Alcohol, Urine < 3.0 mg/dL (0-10); Amphetamine Screen, Urine NEGATIVE (NEGATIVE); Barbiturate Scree,Urine NEGATIVE (NEGATIVE); Benzodiazephine Screen, Urine NEGATIVE (NEGATIVE); Cannabinoid Screen, Urine NEGATIVE (NEGATIVE); Cocaine Screen, Urine NEGATIVE (NEGATIVE); Opiate Scree,Urine NEGATIVE (NEGATIVE); Phencyclidine Screen, Urine NEGATIVE (NEGATIVE)
[2020-05-23 05:17] VITALS: BP 98/56
[2020-05-23 05:54] VITALS: BP 106/62
[2020-05-23] MEDS ORDERED: ADENOSINE 58 MG in GIVE UN-DILUTED 0 ML IV STA (08:40)
[2020-05-23 09:00] VITALS: BP 106/65
[2020-05-23] MEDS: PANTOPRAZOLE 40 MG/10 ML VIAL INJ IV SCH (11:01)
[2020-05-23] MEDS: LISINOPRIL 10 MG TAB PO SCH (11:02)
[2020-05-23] MEDS: ASPirin-EC 81 mg tab PO SCH (11:02)
[2020-05-23 12:53] VITALS: BP 110/80
[2020-05-23 16:50] VITALS: BP 100/73
[2020-05-23] MEDS: RIVAROXABAN 20 MG TAB PO SCH (17:01)
[2020-05-23] MEDS: ATORVASTATIN 20 MG TAB PO SCH (21:48)
[2020-05-23 22:43] VITALS: BP 106/63
[2020-05-24 05:11] VITALS: BP 97/62
[2020-05-24 05:51] VITALS: BP 103/58
[2020-05-24 09:05] VITALS: BP 112/64
[2020-05-24] MEDS: LISINOPRIL 10 MG TAB PO SCH (10:22)
[2020-05-24] MEDS: ASPirin-EC 81 mg tab PO SCH (10:22)
[2020-05-24] MEDS: PANTOPRAZOLE 40 MG/10 ML VIAL INJ IV SCH (10:22)
[2020-05-24 12:31] VITALS: BP 108/70
[2020-05-24 16:27] VITALS: BP 116/71
[2020-05-24] MEDS: RIVAROXABAN 20 MG TAB PO SCH (18:39)
[2020-05-24] MEDS: HYDROcodone-ACET 5/325MG TAB PO PRN (20:01)
[2020-05-24 22:00] VITALS: BP 102/68
[2020-05-24] MEDS: ATORVASTATIN 20 MG TAB PO SCH (22:13)
[2020-05-25 05:00] VITALS: BP 111/73
[2020-05-25 09:00] VITALS: BP 117/66
[2020-05-25] MEDS: ASPirin-EC 81 mg tab PO SCH (09:59)
[2020-05-25] MEDS: PANTOPRAZOLE 40 MG/10 ML VIAL INJ IV SCH (09:59)
[2020-05-25] MEDS: HYDROcodone-ACET 5/325MG TAB PO PRN (10:00)
[2020-05-25] MEDS: LISINOPRIL 10 MG TAB PO SCH (10:00)
[2020-05-25 13:00] VITALS: BP 120/63
[2020-05-25 16:36] VITALS: BP 106/61
[2020-05-25] MEDS: RIVAROXABAN 20 MG TAB PO SCH (17:36)
[2020-05-25] MEDS: ATORVASTATIN 20 MG TAB PO SCH (21:01)
[2020-05-25 21:52] VITALS: BP 113/70
[2020-05-26 04:53] VITALS: BP 113/59
[2020-05-26 09:00] VITALS: BP 103/67
[2020-05-26] MEDS: PANTOPRAZOLE 40 MG/10 ML VIAL INJ IV SCH (09:43)
[2020-05-26] MEDS: ASPirin-EC 81 mg tab PO SCH (09:44)
[2020-05-26] MEDS: LISINOPRIL 10 MG TAB PO SCH (09:45)
[2020-05-26 13:00] VITALS: BP 108/64
[2020-05-26 16:33] VITALS: BP 108/64
[2020-05-26 17:00] VITALS: BP 103/65
== END 2020-05-26 17:51 | disposition home or self-care (01) | DRG 203 ==
LOC: EDBD 10:57 → ER 10:57 → TELE 10:58 → TELE-CENTR 14:12
PROVIDERS: ADMIT Nurse Practitioner Acute Care; ATTEND Internal Medicine Cardiovascular Disease
DX: M94.0 Chondrocostal junction syndrome [Tietze] (principal); I48.0 Paroxysmal atrial fibrillation; E78.5 Hyperlipidemia, unspecified; I10 Essential (primary) hypertension; I25.10 Atherosclerotic heart disease of native coronary artery without angina pectoris; Z20.822 Contact with and (suspected) exposure to COVID-19; K21.9 Gastro-esophageal reflux disease without esophagitis; Z86.16 Personal history of COVID-19; Z59.0 Homelessness; Z95.2 Presence of prosthetic heart valve; Z87.891 Personal history of nicotine dependence; Z79.82 Long term (current) use of aspirin; Z79.01 Long term (current) use of anticoagulants; Z79.899 Other long term (current) drug therapy; Z82.49 Family history of ischemic heart disease and other diseases of the circulatory system; Z82.5 Family history of asthma and other chronic lower respiratory diseases
CPT/HCPCS: 36415; 71045; 78452; 80053; 80307; 83735; 83880; 84443; 84484; 85025; 85379; 85610; 85730; 86141; 87426; 93005; 93017; 96374; C9113; G0378; J0153